=== PATIENT | female | born 1990 | race Caucasian/White ===

== ENCOUNTER 2020-05-23 20:25 | Emergency (ER) | payer MEDICAID, OTHER ==
[~2020-05-23] VITALS: Ht 160 cm; Wt 107.9 kg
[2020-05-23 20:46] VITALS: BP 133/69
[2020-05-23] MEDS ORDERED: ONDA4TAB11 PO (20:54)
--- NOTE | 2020-05-23 20:54 | ED General ---
General Stated Complaint: VOMITING History of Present Illness Date Seen by Provider: May 23, 2020 Time Seen by Provider: 20:45 Initial Comments This patient is a 30-year-old female presents to the emergency department stating that she vomited last night. Involuntarily. Since she woke up this morning also nauseous and vomited. Patient states otherwise he feels pretty good has multiple vague complaints that are chronic in nature but nothing acute. Patient has nonspecific complaints. Timing/Duration: 12-24 Hours Severity: Mild Associated Systoms: Denies Symptoms, Nausea/Vomiting Allergies and Home Medications Allergies Coded Allergies: Penicillins (Verified Allergy, Unknown, 05/23/20) Sulfa (Sulfonamide Antibiotics) (Verified Allergy, Unknown, 05/23/20) albuterol (Verified Allergy, Unknown, 05/23/20) codeine (Verified Allergy, Unknown, 05/23/20) sulfamethoxazole (Verified Allergy, Unknown, 05/23/20) trimethoprim (Verified Allergy, Unknown, 05/23/20) Home Medications Ondansetron 4 Mg Tab.rapdis, 4 MG PO BID PRN Prescribed by: TOMY DRISCOLL on 05/23/202053 Patient Home Medication List Home Medication List Reviewed: Yes Review of Systems Review of Systems Constitutional: No no symptoms reported; see HPI; No chills, No diaphoresis, No dizziness, No fever, No malaise, No weakness, No weight gain, No weight loss, No other EENTM: No see HPI, No no symptoms reported, No ear discharge, No hearing loss, No ear pain, No blurred vision, No double vision, No eye pain, No tearing, No vision loss, No dental problems, No hoarseness, No mouth pain, No mouth swelling, No epistaxis, No nose congestion, No nose pain, No throat pain, No thr oat swelling, No other Respiratory: No no symptoms reported, No see HPI, No cough, No dyspnea on exertion, No hemoptysis, No orthopnea, No phlegm, No short of breath, No stridor, No wheezing, No other Cardiovascular: No no symptoms reported, No see HPI, No chest pain, No edema, No Hx of Intervention, No palpitations, No syncope, No vascular heart diseas, No other Gastrointestinal: No RUQ, No LUQ, No RLQ, No LLQ, No no symptoms reported; see HPI; No abdominal pain, No constipation, No diarrhea, No dysphagia, No hematemesis, No heartburn, No jaundice, No loss of appetite, No melena; nausea, vomiting; No other Genitourinary: No no symptoms reported, No see HPI, No decreased output, No discharge, No dysuria, No frequency, No hematuria, No hesitancy, No incontinence, No nocturia, No pain, No other Musculoskeletal: No no symptoms reported, No see HPI, No back pain, No gout, No joint pain, No joint swelling, No muscle pain, No muscle stiffness, No muscle cramps, No muscle twitching, No muscle weakness, No neck pain, No other Skin: No no symptoms reported, No see HPI, No change in color, No change in hair/nails, No dryness, No hx of skin cancer, No lesions, No lumps, No pruritus, No rash, No other All Other Systems Reviewed Negative Unless Noted: Yes Past Luqmjdb-Glgcpv-Fsnygv Hx Patient Social History Recent Foreign Travel: No Contact w/Someone Who Travel: No Physical Exam Vital Signs Vital Signs - First Documented 05/23/20 20:46 Temp 36.1 Pulse 78 Resp 18 B/P (MAP) 133/69 (90) Pulse Ox 97 O2 Delivery Room Air Capillary Refill : Height, Weight, BMI Height: '" Weight: lbs. oz. kg; BMI Method: General Appearance: No Apparent Distress, WD/WN Respiratory: Chest Non Tender, Lungs Clear, Normal Breath Sounds, No Accessory Muscle Use, No Respiratory Distress Cardiovascular: Regular Rate, Rhythm, No Edema, No Gallop, No JVD, No Murmur, Normal Peripheral Pulses Gastrointestinal: Normal Bowel Sounds, No Organomegaly, No Pulsatile Mass, Non Tender, Soft Progress/Results/Core Measures Suspected Sepsis SIRS Temperature: Pulse: Respiratory Rate: Blood Pressure / Mean: Results/Orders My Orders Orders - TOMY DRISCOLL MD Abdomen Flat & Upright/Decub (05/23/20 20:50) Vital Signs/I&O 05/23/20 20:46 Temp 36.1 Pulse 78 Resp 18 B/P (MAP) 133/69 (90) Pulse Ox 97 O2 Delivery Room Air Capillary Refill : Progress Note : Time: 20:52 Progress Note Negative evaluation on the emergency department. X-ray prescription is constipated. Encourage by mouth fluids. Advance diet as tolerated. Zofran IV for nausea. Follow-up with PCP. Departure Impression Primary Impression: Nausea & vomiting Additional Impression: Constipation Disposition: 01 HOME, SELF-CARE Condition: Stable Departure-Patient Inst. Decision time for Depature: 21:21 Referrals: NO,LOCAL PHYSICIAN (PCP) Primary Care Physician Patient Instructions: Nausea and Vomiting, Adult (DC) Add. Discharge Instructions: Encourage by mouth fluids. Advance diet as tolerated. Zofran IV for nausea. Follow-up with PCP. Mrbt-myg-hwrwklw laxative MiraLAX as needed for constipation Scripts Ondansetron (Ondansetron Odt) 4 Mg Tab.rapdis 4 MG PO BID PRN, #10 TAB 0 Refills Prov: TOMY DRISCOLL MD 05/23/20 TOMY DRISCOLL MD May 23, 2020 20:54
--- NOTE | 2020-05-23 21:24 | Diagnostic Imaging Report ---
INDICATION: Vomiting Supine and upright views of the abdomen show fecal material throughout a nondilated colon consistent with constipation. No obstruction or perforation is evident. No mass or calculus is seen. There is no bony abnormality. IMPRESSION: Constipation. Dictated by: Dictated on workstation # [id number]
== END 2020-05-23 21:23 | disposition home or self-care (01) ==
LOC: ER FS 20:27
DX: K59.00 Constipation, unspecified (principal); Z88.0 Allergy status to penicillin; Z88.2 Allergy status to sulfonamides; Z88.5 Allergy status to narcotic agent; Z88.1 Allergy status to other antibiotic agents; Z88.8 Allergy status to other drugs, medicaments and biological substances
CPT/HCPCS: 74019

== ENCOUNTER 2020-07-30 07:15 | Emergency (ER) | payer MEDICAID ==
[~2020-07-30] VITALS: Ht 160 cm; Wt 100.0 kg
[~2020-07-30 07:15] MED LIST: ONDA4TAB11 PO
[2020-07-30 07:29] VITALS: BP 134/76
[2020-07-30 07:40] LABS: CLARITY,URINE CLOUDY; COLOR,URINE YELLOW; GLUCOSE, URINE (UA) NEGATIVE (NEGATIVE); KETONES,URINE NEGATIVE (NEGATIVE); NITRITE,URINE POSITIVE (NEGATIVE); PROTEIN,URINE 2+ (NEGATIVE)
[2020-07-30 07:41] LABS: BACTERIA,URINE FEW /HPF; BILIRUBIN,URINE 1+ (NEGATIVE); LEUKOCYTE ESTERASE ,URINE 2+ (NEGATIVE); RBC,URINE TNTC /HPF; SQUAMOUS EPITHELIAL CELL,UR 0-2 /HPF; WBC,URINE TNTC /HPF
--- NOTE | 2020-07-30 07:50 | ED GU-Female ---
General Chief Complaint: - Urinary Stated Complaint: VAGINAL BURNING Nursing Triage Note: PT REPORTS BURNING AND PAIN WITH URINATION FOR 2 DAYS. Nursing Sepsis Screen: No Definite Risk Source: patient Exam Limitations: no limitations History of Present Illness Date Seen by Provider: Jul 30, 2020 Time Seen by Provider: 07:30 Initial Comments 30 y/o female presents w c/o pain and burning w urination for a couple days. Denies vaginal DC or abnl bleeding. No fever or back pain. Hx of UTI's , however has not had one for a while. Was on an antibiotic (keflex) in the last 30 days for a "bacteria infection", but she does not know what it was. Allergies and Home Medications Allergies Coded Allergies: Penicillins (Verified Allergy, Unknown, 05/23/20) Sulfa (Sulfonamide Antibiotics) (Verified Allergy, Unknown, 05/23/20) albuterol (Verified Allergy, Unknown, 05/23/20) codeine (Verified Allergy, Unknown, 05/23/20) sulfamethoxazole (Verified Allergy, Unknown, 05/23/20) trimethoprim (Verified Allergy, Unknown, 05/23/20) Home Medications Ciprofloxacin HCl 500 Mg Tablet, 500 MG PO BID Prescribed by: HARRY THRASHER on 07/30/20751 Fluconazole 150 Mg Tablet, 150 MG PO ONCE Prescribed by: HARRY THRASHER on 07/30/20751 Ondansetron 4 Mg Tab.rapdis, 4 MG PO BID PRN Prescribed by: TOMY DRISCOLL on 05/23/202053 Phenazopyridine HCl 200 Mg Tablet, 200 MG PO BID Prescribed by: HARRY THRASHER on 07/30/20751 Patient Home Medication List Home Medication List Reviewed: Yes Review of Systems Review of Systems Constitutional: No chills, No fever, No malaise Respiratory: no symptoms reported Cardiovascular: no symptoms reported Gastrointestinal: No abdominal pain, No constipation, No diarrhea, No loss of appetite, No nausea, No vomiting Genitourinary: burning; denies discharge; dysuria, frequency; denies flank pain, denies hematuria, denies incontinence; pain, urgency Musculoskeletal: No back pain, No joint pain Past Zbtvyjg-Gkosjd-Vlqqql Hx Past Med/Social Hx: Reviewed Nursing Past Med/Soc Hx Patient Social History Alcohol Use: Occasionally Uses Smoking Status: Current Everyday Smoker Type Used: Cigarettes 2nd Hand Smoke Exposure: Yes Recent Infectious Disease Expo: No Past Medical History Surgeries: No Respiratory: Yes Asthma Cardiac: No Neurological: No Genitourinary: No Gastrointestinal: No Musculoskeletal: Yes Chronic Back Pain Endocrine: No HEENT: No Cancer: No Psychosocial: Yes Anxiety, Depression Integumentary: No Physical Exam Vital Signs Vital Signs - First Documented 07/30/20 07:29 Temp 35.9 Pulse 89 Resp 18 B/P (MAP) 134/76 (95) Pulse Ox 99 O2 Delivery Room Air Capillary Refill : Less Than 3 Seconds Height, Weight, BMI Height: '" Weight: lbs. oz. kg; 39.00 BMI Method: General Appearance: WD/WN, no apparent distress Gastrointestinal: normal bowel sounds, non tender, soft, no organomegaly, no pulsatile mass Back: normal inspection, no CVA tenderness Progress/Results/Core Measures Suspected Sepsis Recent Fever Within 48 Hours: No Infection Criteria Present: None New/Unexplained Altered Menta: No Sepsis Screen: No Definite Risk SIRS Temperature: Pulse: 89 Respiratory Rate: 18 Blood Pressure 134 /76 Mean: 95 Results/Orders Lab Results Laboratory Tests Test 07/30/20 07:20 Range/Units Urine Color YELLOW Urine Clarity CLOUDY Urine pH 6.0 5-9 Urine Specific [place] 1.025 H 1.016-1.022 Urine Protein 2+ H NEGATIVE Urine Glucose (UA) NEGATIVE NEGATIVE Urine Ketones NEGATIVE NEGATIVE Urine Nitrite POSITIVE H NEGATIVE Urine Bilirubin 1+ H NEGATIVE Urine Urobilinogen 0.2 < = 1.0 MG/DL Urine Leukocyte Esterase 2+ H NEGATIVE Urine RBC (Auto) 3+ H NEGATIVE Urine RBC TNTC H /HPF Urine WBC TNTC H /HPF Urine Squamous Epithelial Cells 0-2 /HPF Urine Crystals NONE /LPF Urine Bacteria FEW H /HPF Urine Casts NONE /LPF Urine Mucus NEGATIVE /LPF Urine Culture Indicated YES My Orders Orders - CARRILLOSTHARRY CRUZ DO Ua Culture If Indicated (07/30/20 07:28) Urine Culture (07/30/20 07:20) Vital Signs/I&O 07/30/20 07:29 Temp 35.9 Pulse 89 Resp 18 B/P (MAP) 134/76 (95) Pulse Ox 99 O2 Delivery Room Air Capillary Refill : Less Than 3 Seconds Blood Pressure Mean: 95 Departure Impression Primary Impression: Urinary tract infection Qualified Codes: N30.00 - Acute cystitis without hematuria Disposition: HOME, SELF-CARE Condition: Stable Departure-Patient Inst. Decision time for Depature: 07:46 Referrals: JOSE RAFAEL VERMA APRN (PCP) Primary Care Physician [facility] (Family) Primary Care Physician Patient Instructions: Urinary Tract Infection, Adult (DC) Add. Discharge Instructions: Follow up with your PCP in 1 week All discharge instructions reviewed with patient and/or family. Voiced unders tanding. Scripts Fluconazole (Diflucan) 150 Mg Tablet 150 MG PO ONCE, #1 TAB Prov: HARRY THRASHER DO 07/30/20 Ciprofloxacin HCl (Ciprofloxacin HCl) 500 Mg Tablet 500 MG PO BID, #14 TAB Prov: CARRILLOSTHARRY CRUZ DO 07/30/20 Phenazopyridine HCl (Pyridium) 200 Mg Tablet 200 MG PO BID for dysuria, #6 Prov: HARRY THRASHER DO 07/30/20 HARRY THRASHER DO Jul 30, 2020 07:50
[2020-07-30] MEDS ORDERED: CIPR500T4 PO (07:52)
[2020-07-30] MEDS ORDERED: FLUC150T PO (07:52)
[2020-07-30] MEDS ORDERED: PHEN-640 PO (07:52)
== END 2020-07-30 07:53 | disposition home or self-care (01) ==
LOC: EDUNIT# 07:15 → ER FS 07:17
DX: N39.0 Urinary tract infection, site not specified (principal); F17.210 Nicotine dependence, cigarettes, uncomplicated; Z88.0 Allergy status to penicillin; Z88.2 Allergy status to sulfonamides; Z88.5 Allergy status to narcotic agent; Z88.1 Allergy status to other antibiotic agents; Z88.8 Allergy status to other drugs, medicaments and biological substances
CPT/HCPCS: 81000; 87088; 99282

== ENCOUNTER 2020-12-10 02:08 | Emergency (ER) | payer MEDICAID ==
[~2020-12-10] VITALS: Ht 160 cm; Wt 105.2 kg
[~2020-12-10 02:08] MED LIST changes: +CIPR500T5 PO; +FLUC150T PO; +PHEN-640 PO
[2020-12-10 02:22] VITALS: BP 135/86
[2020-12-10] MEDS ORDERED: ONDA4TAB11 PO (02:23)
--- NOTE | 2020-12-10 02:23 | ED GI ---
General Stated Complaint: NAUSEA/VOMITING History of Present Illness Date Seen by Provider: December 10, 2020 Time Seen by Provider: 02:18 Initial Comments 31-year-old female presents via EMS with complaint of nausea and vomiting starting at 1 AM. Given Zofran sublingual in route and feeling better on arrival, denies abdominal pain, fever or chills. States she ate 2 hotdogs and not sure cheese fries last night before going to bed and thinks that may have upset her stomach. Allergies and Home Medications Allergies Coded Allergies: Penicillins (Verified Allergy, Unknown, 05/23/20) Sulfa (Sulfonamide Antibiotics) (Verified Allergy, Unknown, 05/23/20) albuterol (Verified Allergy, Unknown, 05/23/20) codeine (Verified Allergy, Unknown, 05/23/20) sulfamethoxazole (Verified Allergy, Unknown, 05/23/20) trimethoprim (Verified Allergy, Unknown, 05/23/20) Home Medications Ciprofloxacin HCl 500 Mg Tablet, 500 MG PO BID Prescribed by: HARRY THRASHER on 07/30/20751 Fluconazole 150 Mg Tablet, 150 MG PO ONCE Prescribed by: HARRY THRASHER on 07/30/20751 Ondansetron 4 Mg Tab.rapdis, 4 MG PO BID PRN Prescribed by: TOMY DRISCOLL on 05/23/202053 Ondansetron 4 Mg Tab.rapdis, 4 MG PO TID Prescribed by: HARRY THRASHER on 12/10/20222 Phenazopyridine HCl 200 Mg Tablet, 200 MG PO BID Prescribed by: HARRY THRASHER on 07/30/20 075 Patient Home Medication List Home Medication List Reviewed: Yes Review of Systems Review of Systems Constitutional: No chills, No fever, No malaise, No weakness EENTM: No Symptoms Reported Respiratory: No Symptoms Reported; Denies Cough, Denies Shortness of Air Cardiovascular: Denies Chest Pain, Denies Edema Gastrointestinal: See HPI; Denies Abdominal Pain, Denies Constipated, Denies Diarrhea; Nausea, Vomiting Genitourinary: No Symptoms Reported Musculoskeletal: no symptoms reported Skin: No change in color, No rash Past Mqatrgs-Tzfkdr-Rwfcyk Hx Past Med/Social Hx: Reviewed Nursing Past Med/Soc Hx Physical Exam Vital Signs Vital Signs - First Documented 12/10/20 02:22 Temp 35.6 Pulse 82 Resp 16 B/P (MAP) 135/86 (102) O2 Delivery Room Air Capillary Refill : Height/Weight/BMI Height: '" Weight: lbs. oz. kg; BMI Method: General Appearance: WD/WN, no apparent distress Respiratory: chest non-tender, lungs clear, normal breath sounds, no respiratory distress, no accessory muscle use Cardiovascular: regular rate, rhythm, no edema, no JVD Gastrointestinal: normal bowel sounds, non tender, soft, no organomegaly, no pulsatile mass; No distended, No guarding, No rebound Neurologic/Psychiatric: alert, normal mood/affect Skin: normal color, warm/dry Progress/Results/Core Measures Results/Orders Vital Signs/I&O 12/10/20 02:22 Temp 35.6 Pulse 82 Resp 16 B/P (MAP) 135/86 (102) O2 Delivery Room Air Progress Progress Note : Progress Note Nausea vomiting resolved on arrival, feeling better. Denies any abdominal pain. Departure Impression Primary Impression: Nausea and vomiting Qualified Codes: R11.2 - Nausea with vomiting, unspecified Disposition: 01 HOME, SELF-CARE Condition: Improved Departure-Patient Inst. Decision time for Depature: 02:21 Patient Instructions: Nausea and Vomiting, Adult Add. Discharge Instructions: Follow-up with your PCP in 2 to 3 days if not improving, ER sooner if worse. Scripts Ondansetron (Ondansetron Odt) 4 Mg Tab.rapdis 4 MG PO TID for Nausea, #10 TAB Prov: HARRY THRASHER DO 12/10/20 HARRY THRASHER DO December 10, 2020 02:23
== END 2020-12-10 02:38 | disposition home or self-care (01) ==
LOC: EDUNIT# 02:08 → ER FS 02:18
DX: R11.2 Nausea with vomiting, unspecified (principal)
CPT/HCPCS: 99283

== ENCOUNTER 2021-08-14 20:25 | Observation (INO) | payer MEDICAID ==
[~2021-08-14] VITALS: Ht 165.1 cm; Wt 99.7 kg
[2021-08-14] MEDS ORDERED: LORazepam INJ 2 MG/ML (ATIVAN) VIAL IVP STA (20:43)
[2021-08-14] MEDS ORDERED: ZIPRASIDONE 20 MG INJ (GEODON) VIAL IM STA (20:43)
[2021-08-14] MEDS ORDERED: WATER (STERILE) FOR INJ 10 ML BTL INJ SCH (20:45)
[2021-08-14] MEDS ORDERED: NS IV 1000 ML 1,000 ML IV SCH (20:45)
[2021-08-14 20:57] LABS: BASOPHILS # (AUTO) 0.1 10^3/uL (0.0-0.1); BASOPHILS % (AUTO) 1 % (0-10); EOSINOPHILS # (AUTO) 0.1 10^3/uL (0.0-0.3); EOSINOPHILS % (AUTO) 1 % (0-10); HEMATOCRIT 40 % (35-52); HEMOGLOBIN 12.8 g/dL (11.5-16.0); LYMPHOCYTES # (AUTO) 4.3 10^3/uL (1.0-4.0); LYMPHOCYTES % (AUTO) 27 % (12-44); MEAN CORPUSCULAR HEMOGLOBIN 26 pg (25-34); MEAN CORPUSCULAR HGB CONC 32 g/dL (32-36); MEAN CORPUSCULAR VOLUME 80 fL (80-99); MEAN PLATELET VOLUME 10.3 fL (9.0-12.2); MONOCYTES % (AUTO) 6 % (0-12); NEUTROPHILS # (AUTO) 10.1 10^3/uL (1.8-7.8); NEUTROPHILS % (AUTO) 65 % (42-75); PLATELET COUNT 537 10^3/uL (130-400); WHITE BLOOD COUNT 15.6 10^3/uL (4.3-11.0)
--- NOTE | 2021-08-14 21:05 | ED Psychosocial ---
General Chief Complaint: Altered Mental Status Stated Complaint: ALTERED LOC Nursing Triage Note: Patient was brought in via [facility] for altered mental status. EMS states that the patient was found wandering around her home in a catatonic like state. Patient is oriented to date and name. Patient is unable to explain what is wrong. Source: patient, EMS, old records Exam Limitations: clinical condition (acute psychosis with altered mental status) History of Present Illness Date Seen by Provider: Aug 14, 2021 Time Seen by Provider: 20:28 Initial Comments 31-year-old female brought in by [facility] for altered mental status. They reported that the patient was found wandering her home and saying that she felt something was wrong and she did not know what was wrong with her. She is oriented to person and time but not to place. She has dilated pupils and is agitated. She has to be constantly redirected due to her psychosis. She appears to be acting under the influence of something or hearing voices telling her to do things. She reportedly has just started Ambien in the last few days. She also takes psychiatric medications for borderline personality disorder. From review of her external medication history she has had multiple medication changes and increases over the last 2-3 months. She could be having interaction of Ambien and her other psychiatric meds. She could also be having an acute psychotic break or have illicit drugs in her system causing her reaction tonight. Associated Symptoms: anxiety, impaired concentration Allergies and Home Medications Allergies Coded Allergies: Penicillins (Verified Allergy, Unknown, 05/23/20) Sulfa (Sulfonamide Antibiotics) (Verified Allergy, Unknown, 05/23/20) albuterol (Verified Allergy, Unknown, 05/23/20) codeine (Verified Allergy, Unknown, 05/23/20) sulfamethoxazole (Verified Allergy, Unknown, 05/23/20) trimethoprim (Verified Allergy, Unknown, 05/23/20) Patient Home Medication List Home Medication List Reviewed: Yes Ciprofloxacin HCl (Ciprofloxacin HCl) 500 Mg Tablet, 500 MG PO BID Prescribed by: HARRY THRASHER on 07/30/20 075 Fluconazole (Diflucan) 150 Mg Tablet, 150 MG PO ONCE Prescribed by: HARRY VIZCAINOSTANTHONY on 07/30/20 075 Ondansetron (Ondansetron Odt) 4 Mg Tab.rapdis, 4 MG PO BID PRN Prescribed by: TOMY DRISCOLL on 05/23/202053 Ondansetron (Ondansetron Odt) 4 Mg Tab.rapdis, 4 MG PO TID Prescribed by: HARRY THRASHER on 12/10/20 022 Phenazopyridine HCl (Pyridium) 200 Mg Tablet, 200 MG PO BID Prescribed by: HARRY VIZCAINOSTANTHONY on 07/30/20 0752 Review of Systems ROS-Unable to Obtain: due to mental status change pt not answering questions fo r ROS Constitutional: no symptoms reported Psychiatric/Neurological: Anxiety Past Mumpuem-Hvnqji-Ayaiyg Hx Patient Social History Smoking Status: Smoker Current Status UNK Pt feels they are or have been: Unable to obtain Seasonal Allergies Seasonal Allergies: Yes Past Medical History Surgeries: No Respiratory: Yes Asthma Cardiac: No Neurological: No Genitourinary: No Gastrointestinal: No (reports IBS) Irritable Bowel Musculoskeletal: Yes Chronic Back Pain Endocrine: No HEENT: No Cancer: No Psychosocial: Yes Anxiety, Violent Behavior, Depression Integumentary: No Blood Disorders: No Physical Exam Vital Signs - First Documented 08/14/21 20:25 Temp 37.0 Pulse 114 Resp 20 B/P (MAP) 162/97 (118) Pulse Ox 94 O2 Delivery Room Air Capillary Refill : Less Than 3 Seconds Height, Weight, BMI Height: '" Weight: lbs. oz. kg; 36.00 BMI Method: General Appearance: mild distress, obese, other (staring gaze and dilated pupils, slow to respond to questions, agitated at times and trying to get up off bed) HEENT: other (dilated pupils and slightly dry mucous membranes) Neck: non-tender, full range of motion, supple, normal inspection Respiratory: chest non-tender, lungs clear, normal breath sounds, no respiratory distress, no accessory muscle use Cardiovascular: normal peripheral pulses, tachycardia Gastrointestinal: normal bowel sounds, non tender, soft, no pulsatile mass Extremities: normal range of motion, non-tender, normal capillary refill Neurologic/Psychiatric: alert; No oriented x 3 (oriented to person and time only) Appearance/Memory: disheveled, impaired insight, impaired recent memory, impaired remote memory Behavior/Eye Contact: decreased rate of speech, compulsive, other (staring gaze and slow to answer or respond to questions) Thoughts/Hallucinations: paranoid, other (agitated at times and keeps trying to get up off bed) Skin: normal color, warm/dry Progress/Results/Core Measures Results/Orders Lab Results Laboratory Tests Test 08/14/21 20:38 08/14/21 21:41 08/14/21 21:48 Range/Units White Blood Count 15.6 H 4.3-11.0 10^3/uL Red Blood Count 4.99 3.80-5.11 10^6/uL Hemoglobin 12.8 11.5-16.0 g/dL Hematocrit 40 35-52 % Mean Corpuscular Volume 80 80-99 fL Mean Corpuscular Hemoglobin 26 25-34 pg Mean Corpuscular Hemoglobin Concent 32 32-36 g/dL Red Cell Distribution Width 15.1 H 10.0-14.5 % Platelet Count 537 H 130-400 10^3/uL Mean Platelet Volume 10.3 9.0-12.2 fL Immature Granulocyte % (Auto) 0 % Neutrophils (%) (Auto) 65 42-75 % Lymphocytes (%) (Auto) 27 12-44 % Monocytes (%) (Auto) 6 0-12 % Eosinophils (%) (Auto) 1 0-10 % Basophils (%) (Auto) 1 0-10 % Neutrophils # (Auto) 10.1 H 1.8-7.8 10^3/uL Lymphocytes # (Auto) 4.3 H 1.0-4.0 10^3/uL Monocytes # (Auto) 1.0 0.0-1.0 10^3/uL Eosinophils # (Auto) 0.1 0.0-0.3 10^3/uL Basophils # (Auto) 0.1 0.0-0.1 10^3/uL Immature Granulocyte # (Auto) 0.0 0.0-0.1 10^3/uL Neutrophils % (Manual) 61 % Lymphocytes % (Manual) 30 % Monocytes % (Manual) 6 % Eosinophils % (Manual) 1 % Band Neutrophils 2 % Platelet Estimate INCREASED Blood Morphology Comment NORMAL Sodium Level 140 135-145 MMOL/L Potassium Level 2.9 L 3.6-5.0 MMOL/L Chloride Level 99 98-107 MMOL/L Carbon Dioxide Level 23 21-32 MMOL/L Anion Gap 18 H 5-14 MMOL/L Blood Urea Nitrogen 7 7-18 MG/DL Creatinine 0.74 0.60-1.30 MG/DL Estimat Glomerular Filtration Rate 109 BUN/Creatinine Ratio 9 Glucose Level 148 H 70-105 MG/DL Calcium Level 9.3 8.5-10.1 MG/DL Corrected Calcium 9.3 8.5-10.1 MG/DL Total Bilirubin 0.5 0.1-1.0 MG/DL Aspartate Amino Transf (AST/SGOT) 18 5-34 U/L Alanine Aminotransferase (ALT/SGPT) 24 0-55 U/L Alkaline Phosphatase 100 40-136 U/L Total Protein 8.1 6.4-8.2 GM/DL Albumin 4.0 3.2-4.5 GM/DL Serum Test, Qualitative NEGATIVE NEGATIVE Salicylates Level < 0.3 L 5.0-20.0 MG/DL Acetaminophen Level < 10 L 10-30 UG/ML Serum Alcohol < 10 <10 MG/DL Urine Color YELLOW Urine Clarity CLOUDY Urine pH 6.0 5-9 Urine Specific [place] >=1.030 1.016-1.022 Urine Protein TRACE H NEGATIVE Urine Glucose (UA) NEGATIVE NEGATIVE Urine Ketones NEGATIVE NEGATIVE Urine Nitrite NEGATIVE NEGATIVE Urine Bilirubin 1+ H NEGATIVE Urine Urobilinogen 0.2 < = 1.0 MG/DL Urine Leukocyte Esterase NEGATIVE NEGATIVE Urine RBC (Auto) TRACE-I H NEGATIVE Urine RBC NONE /HPF Urine WBC 3-5 /HPF Urine Squamous Epithelial Cells 10-25 H /HPF Urine Crystals NONE /LPF Urine Bacteria MODERATE H /HPF Urine Casts NONE /LPF Urine Mucus NEGATIVE /LPF Urine Other CLUE CELLS NOTED /HPF Urine Culture Indicated NO Urine Opiates Screen NEGATIVE NEGATIVE Urine Oxycodone Screen NEGATIVE NEGATIVE Urine Methadone Screen NEGATIVE NEGATIVE Urine Propoxyphene Screen NEGATIVE NEGATIVE Urine Barbiturates Screen NEGATIVE NEGATIVE Ur Tricyclic Antidepressants Screen NEGATIVE NEGATIVE Urine Phencyclidine Screen NEGATIVE NEGATIVE Urine Amphetamines Screen NEGATIVE NEGATIVE Urine Methamphetamines Screen NEGATIVE NEGATIVE Urine Benzodiazepines Screen NEGATIVE NEGATIVE Urine Cocaine Screen NEGATIVE NEGATIVE Urine Cannabinoids Screen POSITIVE H NEGATIVE My Orders Orders - OMID LYNN MD Ua Culture If Indicated (08/14/21 20:43) Cbc With Automated Diff (08/14/21 20:43) Comprehensive Metabolic Panel (08/14/21 20:43) Alcohol (08/14/21 20:43) Drug Screen Stat (Urine) (08/14/21 20:43) Acetaminophen (08/14/21 20:43) Salicylate (08/14/21 20:43) Ekg Tracing (08/14/21 20:43) Ed Iv/Invasive Line Start (08/14/21 20:43) Monitor-Rhythm Ecg Trace Only (08/14/21 20:43) Bh Status Checks/Observation Q15M (08/14/21 20:43) Ns Iv 1000 Ml (Sodium Chloride 0.9%) (08/14/21 20:45) Covid 19 Inhouse Test (08/14/21 20:43) Isolation Central Supply Req (08/14/21 20:43) Hcg,Qualitative Serum (08/14/21 20:43) Lorazepam Injection (Ativan Injection) (08/14/21 20:43) Ziprasidone Injection (Geodon Injection) (08/14/21 20:43) Water (Sterile) For Injection (Sterile W (08/14/21 20:45) Manual Differential (08/14/21 20:38) Pang Cath (08/14/21 21:49) Ns Iv 1000 Ml (Sodium Chloride 0.9%) (08/14/21 23:52) Potassium Cl 10meq/50ml Ivpb (Kcl 10 Meq (08/14/21 23:52) Vital Signs/I&O 08/14/21 08/15/21 20:25 00:54 Temp 37.0 Pulse 114 71 Resp 20 16 B/P (MAP) 162/97 (118) 129/86 Pulse Ox 94 99 O2 Delivery Room Air Room Air 08/15/21 00:00 Intake Total 1000 ml Balance 1000 ml Blood Pressure Mean: 118 Admisison Planning May Need Admission (Planning): 20:45 Progress Progress Note #1: Progress Note Patient appears to be responding to outside stimuli. She has a staring gaze with dilated pupils. She repeatedly says that she does not know what is wrong with her and tries to get up off the bed. At times she becomes agitated. Will obtain labs to medically screen her for a psych standpoint to see if there was a medical condition to account for her acute psychosis. Law enforcement came to help with redirecting her and keeping her safe in the bed so that she did not get up and fall or hurt herself. She had unsteady gait and near fall when she transferred from EMS cot to bed in ED. Will give IVF 1 L NS for hydration, Lorazepam 1 mg IV for agitation and anxiety, Geodon 20 mg IM for anxiety and agitation with apparent psychosis. Progress Note #2: Progress Note No acute ischemic change on the electrocardiogram. Her labs showed an elevated white blood cell count of 15.6. Her chemistry panel did not show any acute significant abnormality to account for her symptoms. She did have mild hypokalemia with a potassium of 2.9. Her alcohol salicylate and acetaminophen levels were negative. Her urine drug screen was positive for marijuana only. Her urinalysis was slightly concentrated but did not show signs of infection. After medication and fluids were given to help with her agitation and acute psychosis she seemed to calm down and was able to rest in the bed. Will give a 2nd Liter of NS for IV fluid hydration along with IV potassium for her hypokalemia. Will check with auto service station attendant physician for [facility] about admit for monitoring for her acute psychosis and once she is medically stable and cleared could see about possible mental health screening Initial ECG Impression Date: Aug 14, 2021 Initial ECG Impression Time: 21:21 Initial ECG Rate: 84 Initial ECG Rhythm: Normal Sinus Initial ECG Comparisson: No Previous ECG Available Comment Normal sinus rhythm with a heart rate of 84 bpm. SD interval 140 ms. T wave flattening in the inferior leads. QT interval 400 ms with a QTc interval 473 ms. There is no acute ST elevation. There is no prior tracing immediately available for comparison. Departure Communication (Admissions) Time/Spoke to Admitting Phy: 23:[address] Stewart for [facility]. She accepted admission of the patient for acute psychosis and mental status change. We will continue with hydration and neuro checks. Anticipate mental health evaluation once patient is medically clear and stable and able to converse and be evaluated by mental health staff. Impression Primary Impression: Acute psychosis Additional Impressions: Dehydration Hypokalemia Disposition: 30 STILL A PATIENT Condition: Stable Admissions Decision to Admit Reason: Admit from ER (General) Decision to Admit/Date: Aug 14, 2021 Time/Decision to Admit Time: 23:56 Departure-Patient Inst. Referrals: JOSE RAFAEL VERMA APRN (PCP/Family) Primary Care Physician OMID LYNN MD Aug 14, 2021 21:05
[2021-08-14 21:33] LABS: BAND NEUTROPHILS 2 %; EOSINOPHILS % (MANUAL) 1 %; LYMPHOCYTES % (MANUAL) 30 %; MONOCYTES % (MANUAL) 6 %; NEUTROPHILS % (MANUAL) 61 %
[2021-08-14 21:34] LABS: PLATELET ESTIMATE INCREASED; RBC MORPH NORMAL
[2021-08-14 21:35] LABS: CARBON DIOXIDE 23 MMOL/L (21-32); CHLORIDE 99 MMOL/L (98-107); POTASSIUM 2.9 MMOL/L (3.6-5.0); SODIUM 140 MMOL/L (135-145)
[2021-08-14 21:36] LABS: ALANINE AMINOTRANSFERASE 24 U/L (0-55); ALKALINE PHOSPHATASE 100 U/L (40-136); BILIRUBIN,TOTAL 0.5 MG/DL (0.1-1.0); BUN/CREATININE RATIO 9; CALCIUM 9.3 MG/DL (8.5-10.1); CREATININE SERUM 0.74 MG/DL (0.60-1.30); GFR ESTIMATED 109; GLUCOSE 148 MG/DL (70-105); TOTAL PROTEIN 8.1 GM/DL (6.4-8.2)
[2021-08-14 21:37] LABS: ACETAMINOPHEN < 10 UG/ML (10-30); SALICYLATE < 0.3 MG/DL (5.0-20.0)
[2021-08-14 21:51] LABS: CLARITY,URINE CLOUDY; COLOR,URINE YELLOW; GLUCOSE, URINE (UA) NEGATIVE (NEGATIVE); KETONES,URINE NEGATIVE (NEGATIVE); LEUKOCYTE ESTERASE ,URINE NEGATIVE (NEGATIVE); NITRITE,URINE NEGATIVE (NEGATIVE); PROTEIN,URINE TRACE (NEGATIVE)
[2021-08-14 22:22] LABS: BACTERIA,URINE MODERATE /HPF
[2021-08-14 22:23] LABS: BILIRUBIN,URINE 1+ (NEGATIVE)
[2021-08-14 22:26] LABS: URINE OTHER CLUE CELLS NOTED /HPF
[2021-08-14 22:27] LABS: AMPHETAMINE SCREEN, URINE NEGATIVE (NEGATIVE); BARBITURATE SCREEN URINE NEGATIVE (NEGATIVE); BENZODIAZEPINES SCREEN URINE NEGATIVE (NEGATIVE); CANNABINOID SCREEN, URINE POSITIVE (NEGATIVE); COCAINE SCREEN URINE NEGATIVE (NEGATIVE); METHADONE STAT NEGATIVE (NEGATIVE); METHAMPHETAMINE SCREEN URINE S NEGATIVE (NEGATIVE); OPIATE SCREEN URINE NEGATIVE (NEGATIVE); OXYCODONE STAT NEGATIVE (NEGATIVE); PROPOXYPHENE STAT NEGATIVE (NEGATIVE); TRICYCLIC ANTIDEPRESSANTS SCRE NEGATIVE (NEGATIVE)
[2021-08-14] MEDS ORDERED: POTASSIUM CL 10MEQ/50ML IVPB 50 ML IV STA (23:52)
[2021-08-14] MEDS ORDERED: NS IV 1000 ML 1,000 ML IV STA (23:52)
[2021-08-15 02:00] VITALS: BP 131/85
[2021-08-15] MEDS ORDERED: LORazepam INJ 2 MG/ML (ATIVAN) VIAL IV PRN (03:00)
[2021-08-15] MEDS: NS W/KCL 20 MEQ/L 1,000 ML IV SCH ×2 (03:29→12:44)
[2021-08-15 04:22] VITALS: BP 157/96
[2021-08-15 05:57] LABS: BASOPHILS # (AUTO) 0.1 10^3/uL (0.0-0.1); BASOPHILS % (AUTO) 1 % (0-10); EOSINOPHILS # (AUTO) 0.2 10^3/uL (0.0-0.3); EOSINOPHILS % (AUTO) 2 % (0-10); HEMATOCRIT 37 % (35-52); HEMOGLOBIN 11.4 g/dL (11.5-16.0); LYMPHOCYTES # (AUTO) 4.1 10^3/uL (1.0-4.0); LYMPHOCYTES % (AUTO) 30 % (12-44); MEAN CORPUSCULAR HEMOGLOBIN 26 pg (25-34); MEAN CORPUSCULAR HGB CONC 31 g/dL (32-36); MEAN CORPUSCULAR VOLUME 82 fL (80-99); MEAN PLATELET VOLUME 10.1 fL (9.0-12.2); MONOCYTES % (AUTO) 7 % (0-12); NEUTROPHILS # (AUTO) 8.2 10^3/uL (1.8-7.8); NEUTROPHILS % (AUTO) 60 % (42-75); PLATELET COUNT 412 10^3/uL (130-400); WHITE BLOOD COUNT 13.6 10^3/uL (4.3-11.0)
[2021-08-15 06:03] LABS: POTASSIUM 2.9 MMOL/L (3.6-5.0)
[2021-08-15 06:04] LABS: CALCIUM 8.4 MG/DL (8.5-10.1)
[2021-08-15 06:09] LABS: CREATININE SERUM 0.7 MG/DL (0.60-1.30)
[2021-08-15 08:00] VITALS: BP 150/98
[2021-08-15] MEDS: POTASSIUM CL 10MEQ/50ML IVPB 50 ML IV SCH ×6 (08:24→13:28)
[2021-08-15] MEDS: LORazepam INJ 2 MG/ML (ATIVAN) VIAL IV PRN ×3 (09:23→23:17)
[2021-08-15 12:00] VITALS: BP 146/98
[2021-08-15] MEDS ORDERED: ZOLP10TA PO ×2 (14:03)
[2021-08-15] MEDS ORDERED: ARIP10TA55 PO ×2 (14:03)
[2021-08-15] MEDS ORDERED: BUSP10TA95 PO ×2 (14:03)
[2021-08-15] MEDS ORDERED: DIVA500T15 PO ×2 (14:03)
[2021-08-15] MEDS ORDERED: DESV100T16 PO ×2 (14:03)
--- NOTE | 2021-08-15 15:06 | History & Physical ---
HPI History of Present Illness: 31 yo female reports she called EMS yesterday because she hasn't been able to sleep since Saturday and has been feeling overwhelmed and "doesn't think she can do it at home alone". She denies history of psychiatric hospitalization, and reports she has not had medicine changes and has been taking medications as prescribed. She denies history of substance use, smokes a ppd. She denies suicidal ideation. I also spoke with patients' mother (with patient's permission) Delma, for about 20 minutes on the phone, who reported Yumiko has had a lot of mental health difficulties, but she doesn't think she has had anything like this prior, but she also isn't in very close touch with her. Date seen by provider: Aug 15, 2021 Time Seen by Provider: 09:45 Attending Physician Ayana Stewart MD PCP Lidia Morales Aprn Consult Date of Admission Aug 15, 2021 at 02:05 Home Medications Home Medications Reviewed patient Home Medication Reconciliation performed by pharmacy medication reconciliations unit technician and/or nursing. Patients Allergies have been reviewed. Allergies Coded Allergies: Penicillins (Verified Allergy, Unknown, 05/23/20) Sulfa (Sulfonamide Antibiotics) (Verified Allergy, Unknown, 05/23/20) albuterol (Verified Allergy, Unknown, 05/23/20) codeine (Verified Allergy, Unknown, 05/23/20) sulfamethoxazole (Verified Allergy, Unknown, 05/23/20) trimethoprim (Verified Allergy, Unknown, 05/23/20) JVU-Chyfej-Rmbnsk Hx Patient Social History Smoking Status: Current Someday Smoker 2nd Hand Smoke Exposure: Yes Alcohol Use?: No Tobacco type used: Cigarettes Have you traveled recently?: No Immunizations Up To Date Influenza Vaccine Up-to-Date: Yes; Up-to-Date (05/09/21) First/Initial COVID19 Vaccinat: 11/18/20 Second COVID19 Vaccination [place]: 12/16/20 COVID19 Booster (Date): 06/19/21 COVID19 Vaccine Heel Reducer: Moderntrinidad Past Medical History PMHx: Depression Anxiety Asthma Migraines SurgHx: Tubal ligation Cholecystectomy Family Medical History Significant Family History: No Pertinent Family Hx Review of Systems ([facility]) Constitutional: No dizziness, No fever EENTM: No vision loss, No throat pain Respiratory: No cough, No short of breath Cardiovascular: No chest pain, No syncope Gastrointestinal: No abdominal pain, No diarrhea, No nausea, No vomiting Genitourinary: No dysuria, No hematuria Musculoskeletal: No joint pain Reviewed Test Results Reviewed Test Results Lab Laboratory Tests Test 08/14/21 20:38 08/14/21 21:41 08/14/21 21:48 08/15/21 05:45 Range/Units White Blood Count 15.6 H 13.6 H 4.3-11.0 10^3/uL Red Blood Count 4.99 4.46 3.80-5.11 10^6/uL Hemoglobin 12.8 11.4 L 11.5-16.0 g/dL Hematocrit 40 37 35-52 % Mean Corpuscular Volume 80 82 80-99 fL Mean Corpuscular Hemoglobin 26 26 25-34 pg Mean Corpuscular Hemoglobin Concent 32 31 L 32-36 g/dL Red Cell Distribution Width 15.1 H 14.9 H 10.0-14.5 % Platelet Count 537 H 412 H 130-400 10^3/uL Mean Platelet Volume 10.3 10.1 9.0-12.2 fL Immature Granulocyte % (Auto) 0 0 % Neutrophils (%) (Auto) 65 60 42-75 % Lymphocytes (%) (Auto) 27 30 12-44 % Monocytes (%) (Auto) 6 7 0-12 % Eosinophils (%) (Auto) 1 2 0-10 % Basophils (%) (Auto) 1 1 0-10 % Neutrophils # (Auto) 10.1 H 8.2 H 1.8-7.8 10^3/uL Lymphocytes # (Auto) 4.3 H 4.1 H 1.0-4.0 10^3/uL Monocytes # (Auto) 1.0 1.0 0.0-1.0 10^3/uL Eosinophils # (Auto) 0.1 0.2 0.0-0.3 10^3/uL Basophils # (Auto) 0.1 0.1 0.0-0.1 10^3/uL Immature Granulocyte # (Auto) 0.0 0.0 0.0-0.1 10^3/uL Neutrophils % (Manual) 61 % Lymphocytes % (Manual) 30 % Monocytes % (Manual) 6 % Eosinophils % (Manual) 1 % Band Neutrophils 2 % Platelet Estimate INCREASED Blood Morphology Comment NORMAL Sodium Level 140 139 135-145 MMOL/L Potassium Level 2.9 L 2.9 L 3.6-5.0 MMOL/L Chloride Level 99 107 98-107 MMOL/L Carbon Dioxide Level 23 21 21-32 MMOL/L Anion Gap 18 H 11 5-14 MMOL/L Blood Urea Nitrogen 7 7 7-18 MG/DL Creatinine 0.74 0.70 0.60-1.30 MG/DL Estimat Glomerular Filtration Rate 109 117 BUN/Creatinine Ratio 9 10 Glucose Level 148 H 109 H 70-105 MG/DL Calcium Level 9.3 8.4 L 8.5-10.1 MG/DL Corrected Calcium 9.3 8.5-10.1 MG/DL Total Bilirubin 0.5 0.1-1.0 MG/DL Aspartate Amino Transf (AST/SGOT) 18 5-34 U/L Alanine Aminotransferase (ALT/SGPT) 24 0-55 U/L Alkaline Phosphatase 100 40-136 U/L Total Protein 8.1 6.4-8.2 GM/DL Albumin 4.0 3.2-4.5 GM/DL Serum Test, Qualitative NEGATIVE NEGATIVE Salicylates Level < 0.3 L 5.0-20.0 MG/DL Acetaminophen Level < 10 L 10-30 UG/ML Serum Alcohol < 10 <10 MG/DL Urine Color YELLOW Urine Clarity CLOUDY Urine pH 6.0 5-9 Urine Specific [place] >=1.030 1.016-1.022 Urine Protein TRACE H NEGATIVE Urine Glucose (UA) NEGATIVE NEGATIVE Urine Ketones NEGATIVE NEGATIVE Urine Nitrite NEGATIVE NEGATIVE Urine Bilirubin 1+ H NEGATIVE Urine Urobilinogen 0.2 < = 1.0 MG/DL Urine Leukocyte Esterase NEGATIVE NEGATIVE Urine RBC (Auto) TRACE-I H NEGATIVE Urine RBC NONE /HPF Urine WBC 3-5 /HPF Urine Squamous Epithelial Cells 10-25 H /HPF Urine Crystals NONE /LPF Urine Bacteria MODERATE H /HPF Urine Casts NONE /LPF Urine Mucus NEGATIVE /LPF Urine Other CLUE CELLS NOTED /HPF Urine Culture Indicated NO Urine Opiates Screen NEGATIVE NEGATIVE Urine Oxycodone Screen NEGATIVE NEGATIVE Urine Methadone Screen NEGATIVE NEGATIVE Urine Propoxyphene Screen NEGATIVE NEGATIVE Urine Barbiturates Screen NEGATIVE NEGATIVE Ur Tricyclic Antidepressants Screen NEGATIVE NEGATIVE Urine Phencyclidine Screen NEGATIVE NEGATIVE Urine Amphetamines Screen NEGATIVE NEGATIVE Urine Methamphetamines Screen NEGATIVE NEGATIVE Urine Benzodiazepines Screen NEGATIVE NEGATIVE Urine Cocaine Screen NEGATIVE NEGATIVE Urine Cannabinoids Screen POSITIVE H NEGATIVE SARS-CoV-2 RNA (RT-PCR) Not Detected Not Detecte Physical Exam-([facility]) Physical Exam Vital Signs VS - Last 72 Hours, by Label 08/14/21 08/15/21 08/15/21 08/15/21 20:25 00:54 02:00 02:00 Temp 37.0 35.7 Pulse 114 71 81 Resp 20 16 20 B/P (MAP) 162/97 (118) 129/86 131/85 (100) Pulse Ox 94 99 100 O2 Delivery Room Air Room Air Room Air Room Air 08/15/21 08/15/21 08/15/21 08/15/21 03:25 04:22 07:00 08:00 Temp 36.0 36.7 Pulse 99 85 104 106 Resp 18 18 B/P (MAP) 157/96 (116) 150/98 (115) Pulse Ox 100 96 O2 Delivery Room Air Room Air 08/15/21 08/15/21 12:00 12:32 Temp 37.0 Pulse 102 134 Resp 20 B/P (MAP) 146/98 (114) Pulse Ox 98 Capillary Refill : Less Than 3 Seconds General Appearance: no apparent distress Respiratory: lungs clear, normal breath sounds Cardiovascular: regular rate, rhythm Gastrointestinal: normal bowel sounds, non tender, soft Extremities: no pedal edema Neurologic/Psychiatric: alert, oriented x 3; No abnormal cerebellar tests, No abnormal rail setter II-XII, No motor weakness Skin: normal color, warm/dry Assessment/Plan Assessment/Plan Admission Status: Observation (1) Altered behavior Status: Acute Assessment & Plan: Uncertain etiology, urine tox pos only for THC. Recently had dose of abilify increased, possibly recent start of ambien, per mother may have been prescribed from an ER visit. No localizing neurologic symptoms. She is alert and oriented at time of my exam. (2) Depression Status: Chronic Assessment & Plan: Holding home meds for now due to concern about medication interaction or overuse contributing to altered state. Qualifiers: (3) Anxiety Status: Chronic Assessment & Plan: Holding home meds for now due to concern about medication interaction or overuse contributing to altered state. Ativan for severe agitation. (4) Hypokalemia Status: Acute Assessment & Plan: Uncertain etiology, replace and follow. (5) Asthma Status: Chronic (6) Migraines Status: Chronic (7) Leukocytosis Status: Acute Assessment & Plan: Uncertain etiology, check CXR and urine culture. Possibly stress reaction. (8) Thrombocytosis Status: Acute (9) Elevated blood pressure reading Status: Acute Assessment & Plan: History of gestational hypertension, but not chronic. Monitor, check head CT. AYANA STEWART MD Aug 15, 2021 15:06
[2021-08-15 16:00] VITALS: BP 151/98
--- NOTE | 2021-08-15 16:20 | Diagnostic Imaging Report ---
PROCEDURE: CT head without contrast. TECHNIQUE: Multiple contiguous axial images were obtained through the brain without the use of intravenous contrast. Auto Exposure Controls were utilized during the CT exam to meet ALARA standards for radiation dose reduction. INDICATION: Altered mental status. COMPARISON: No prior studies are available for comparison. FINDINGS: Ventricles and sulci are within normal limits. No sulcal effacement or midline shift is identified. No acute intra-axial or extra-axial hemorrhage is identified. Cisterns are patent. Visualized paranasal sinuses are clear. IMPRESSION: No acute intracranial process is detected. Dictated by: Dictated on workstation # [id number]
--- NOTE | 2021-08-15 16:22 | Diagnostic Imaging Report ---
INDICATION: Leukocytosis. TIME OF EXAM: 03:52 p.m. COMPARISON: No prior studies are available for comparison. FINDINGS: The heart size is normal. The pulmonary vascularity is unremarkable. The lungs are clear. No infiltrate, effusion or pneumothorax is detected. IMPRESSION: No acute cardiopulmonary process is detected. Dictated by: Dictated on workstation # [id number]
[2021-08-15 19:08] VITALS: BP 146/99
[2021-08-16 00:27] VITALS: BP 149/100
[2021-08-16] MEDS: NS W/KCL 20 MEQ/L 1,000 ML IV SCH (00:35)
[2021-08-16 03:39] VITALS: BP 147/99
[2021-08-16 06:50] LABS: HEMATOCRIT 39 % (35-52); HEMOGLOBIN 12.4 g/dL (11.5-16.0); MEAN CORPUSCULAR HEMOGLOBIN 26 pg (25-34); MEAN CORPUSCULAR HGB CONC 32 g/dL (32-36); MEAN CORPUSCULAR VOLUME 81 fL (80-99); PLATELET COUNT 429 10^3/uL (130-400); WHITE BLOOD COUNT 13.5 10^3/uL (4.3-11.0)
[2021-08-16 07:04] LABS: POTASSIUM 3.8 MMOL/L (3.6-5.0)
[2021-08-16 07:05] LABS: CALCIUM 8.8 MG/DL (8.5-10.1)
[2021-08-16 07:09] LABS: CREATININE SERUM 0.66 MG/DL (0.60-1.30)
[2021-08-16 07:35] VITALS: BP 138/92
--- NOTE | 2021-08-16 09:48 | Progress Note ---
Subjective Subjective/Events-last exam Afebrile, no acute events, intermittently somewhat agitated. This morning at time of my exam, she is standing up wanting to go for a walk and impulsively walking without bring IV pole. She states "I don't know what is wrong with me", and when asked what she means, she said "I am not myself", but can't clarify f urther. She is alert and oriented x3 (and seems somewhat irritated to be asked these questions), but seems to stare past without making good eye contact and says "I am having a mental breakdown" but again when asked further she doesn't answer/clarify. Objective Exam Last Set of Vital Signs Vital Signs Date Time Temp Pulse Resp B/P (MAP) Pulse Ox O2 Delivery O2 Flow Rate FiO2 08/16/21 07:35 37.2 86 22 138/92 (107) 96 Room Air Capillary Refill : Less Than 3 Seconds I&O Intake and Output 08/16/21 00:00 Intake Total 2420 ml Output Total 2575 ml Balance -155 ml Intake Oral 1120 ml IV Total 1300 ml Output Urine Total 2575 ml Daily Weight Change Unsure General: Alert, Oriented X3 Lungs: Clear to Auscultation, Normal Air Movement Heart: Regular Rate, No Murmurs Abdomen: Normal Bowel Sounds, Soft Neuro: Other (poor eye contact, ambulating independently but appears to sway at times) Psych/Mental Status: Other (oriented x 3 but doesn't answer other questions well) Results/Procedures Lab Laboratory Tests 08/16/21 06:45: White Blood Count 13.5H, Red Blood Count 4.83, Hemoglobin 12.4, Hematocrit 39, Mean Corpuscular Volume 81, Mean Corpuscular Hemoglobin 26, Mean Corpuscular Hemoglobin Concent 32, Red Cell Distribution Width 14.6H, Platelet Count 429H, Mean Platelet Volume 10.0, Sodium Level 135, Potassium Level 3.8, Chloride Level 105, Carbon Dioxide Level 19L, Anion Gap 11, Blood Urea Nitrogen 6L, Creatinine 0.66, Estimat Glomerular Filtration Rate 119, BUN/Creatinine Ratio 9, Glucose Level 108H, Calcium Level 8.[address] head 08/15/21: IMPRESSION: No acute intracranial process is detected. CXR 08/15/21: IMPRESSION: No acute cardiopulmonary process is detected. Assessment/Plan Assessment/Plan (1) Altered behavior Status: Acute Assessment & Plan: Uncertain etiology, urine tox pos only for THC. Recently had dose of abilify increased, possibly recent start of ambien, per mother may have been prescribed from an ER visit. No localizing neurologic symptoms. She is alert and oriented at time of my exam. 2/2- remains oriented but with impulsive behaviors and stating she is having a breakdown but does not answer further questions about symptoms. CT head okay. Continuing to eval for possible Psychiatric inpatient placement. (2) Depression Status: Chronic Assessment & Plan: Holding home meds for now due to concern about medication interaction or overuse contributing to altered state. Qualifiers: (3) Anxiety Status: Chronic Assessment & Plan: Holding home meds for now due to concern about medication interaction or overuse contributing to altered state. Ativan for severe agitation. (4) Hypokalemia Status: Resolved Assessment & Plan: Uncertain etiology, replace and follow. (5) Asthma Status: Chronic (6) Migraines Status: Chronic (7) Leukocytosis Status: Acute Assessment & Plan: Uncertain etiology, check CXR and urine culture. Possibly stress reaction. 2/2- CXR okay, urine culture pending. (8) Thrombocytosis Status: Acute (9) Elevated blood pressure reading Status: Acute Assessment & Plan: History of gestational hypertension, but not chronic. Monitor, check head CT. 2/2 appears to be trending down, CT head unremarkable. (10) DVT prophylaxis Status: Acute Assessment & Plan: Enoxaparin (11) Discharge planning issues Status: Acute Assessment & Plan: 08/15- Investigating possibility of inpatient Psych, spoke with mother about status. 08/16- Spoke with mother and updated on status. AYANA HILARIO MD Aug 16, 2021 09:48
[2021-08-16 12:09] VITALS: BP 146/98
[2021-08-16] MEDS: LORazepam INJ 2 MG/ML (ATIVAN) VIAL IV PRN ×2 (12:36→20:16)
[2021-08-16 15:03] VITALS: BP 138/94
[2021-08-16 19:33] VITALS: BP 114/79
[2021-08-17] VITALS (7 sets, daily range): BP systolic 108–151; BP diastolic 68–93
[2021-08-17 09:08] LABS: HEMATOCRIT 43 % (35-52); HEMOGLOBIN 13.6 g/dL (11.5-16.0); MEAN CORPUSCULAR HEMOGLOBIN 25 pg (25-34); MEAN CORPUSCULAR HGB CONC 31 g/dL (32-36); MEAN CORPUSCULAR VOLUME 81 fL (80-99); MEAN PLATELET VOLUME 10.1 fL (9.0-12.2); PLATELET COUNT 475 10^3/uL (130-400); WHITE BLOOD COUNT 13.6 10^3/uL (4.3-11.0)
[2021-08-17 09:24] LABS: POTASSIUM 3.9 MMOL/L (3.6-5.0)
[2021-08-17 09:25] LABS: CALCIUM 9.4 MG/DL (8.5-10.1)
[2021-08-17 09:29] LABS: CREATININE SERUM 0.78 MG/DL (0.60-1.30)
[2021-08-17] MEDS: LORazepam INJ 2 MG/ML (ATIVAN) VIAL IV PRN ×2 (09:35→20:35)
--- NOTE | 2021-08-17 16:01 | Progress Note ---
Subjective Subjective/Events-last exam Alert, with very flat affect, states she is not sure what is wrong with her, but when asked further questions, she is more conversational and states she has all this depression and can't sleep and doesn't know what is next or where that is going. She states she went to the ER in [place] about a week ago and was prescribed the Ambien. She doesn't recall if she is taking Depakote, but doesn't think so. Objective Exam Last Set of Vital Signs Vital Signs Date Time Temp Pulse Resp B/P (MAP) Pulse Ox O2 Delivery O2 Flow Rate FiO2 08/17/21 15:13 36.7 113 14 119/88 (98) 95 Room Air Capillary Refill : Less Than 3 Seconds I&O Intake and Output 08/17/21 00:00 Intake Total 880 ml Output Total 2920 ml Balance -2040 ml Intake Oral 880 ml Output Urine Total 2920 ml General: Alert, No Acute Distress Lungs: Clear to Auscultation, Normal Air Movement Heart: Regular Rate, No Murmurs Neuro: Other Psych/Mental Status: Other (flat affect, oriented x 3, shuffling gait, impulsive movements that appear concerning for risk of fall) Results/Procedures Lab Laboratory Tests 08/17/21 09:04: White Blood Count 13.6H, Red Blood Count 5.35H, Hemoglobin 13.6, Hematocrit 43, Mean Corpuscular Volume 81, Mean Corpuscular Hemoglobin 25, Mean Corpuscular Hemoglobin Concent 31L, Red Cell Distribution Width 14.8H, Platelet Count 475H, Mean Platelet Volume 10.1, Sodium Level 134L, Potassium Level 3.9, Chloride Level 102, Carbon Dioxide Level 19L, Anion Gap 13, Blood Urea Nitrogen 10, Creatinine 0.78, Estimat Glomerular Filtration Rate 103, BUN/Creatinine Ratio 13, Glucose Level 136H, Calcium Level 9.[address] head 08/15/21: IMPRESSION: No acute intracranial process is detected. CXR 08/15/21: IMPRESSION: No acute cardiopulmonary process is detected. Assessment/Plan Assessment/Plan (1) Altered behavior Status: Acute Assessment & Plan: Uncertain etiology, urine tox pos only for THC. Recently had dose of abilify increased, possibly recent start of ambien, per mother may have been prescribed from an ER visit. No localizing neurologic symptoms. She is alert and oriented at time of my exam. 2/2- remains oriented but with impulsive behaviors and stating she is having a breakdown but does not answer further questions about symptoms. CT head okay. Continuing to eval for possible Psychiatric inpatient placement. 08/17- talked with outpatient psych [employer]ING ROLLING MACHINE OPERATOR, he noted that she was on depakote for quite some time and he was actually hesitant to d/c in case of any bipolar co ncern, but she was adamant that it was for irritablity/anger and she didn't think it helped and wanted to stop, so she was changed from that to abilify at the end of June, given this, he is concerned that the difficulty sleeping, etc could be a possible manifestation of bipolar, and therefore, we will try resuming depakote for now. Will also resume antidepressant and buspirone, hold abilify and ambien. Ambien was prescribed by outside ER about a week ago, not a chronic medication for her. (2) Depression Status: Chronic Assessment & Plan: Holding home meds for now due to concern about medication interaction or overuse contributing to altered state. 2/3 see above Qualifiers: (3) Anxiety Status: Chronic Assessment & Plan: Holding home meds for now due to concern about medication interaction or overuse contributing to altered state. Ativan for severe agitation. 2/3 resume home buspirone. (4) Hypokalemia Status: Resolved Assessment & Plan: Uncertain etiology, replace and follow. (5) Asthma Status: Chronic (6) Migraines Status: Chronic (7) Leukocytosis Status: Acute Assessment & Plan: Uncertain etiology, check CXR and urine culture. Possibly stress reaction. 2/2- CXR okay, urine culture pending. (8) Thrombocytosis Status: Acute (9) Elevated blood pressure reading Status: Resolved Assessment & Plan: History of gestational hypertension, but not chronic. Monitor, check head CT. 2/2 appears to be trending down, CT head unremarkable. (10) DVT prophylaxis Status: Acute Assessment & Plan: Enoxaparin (11) Discharge planning issues Status: Acute Assessment & Plan: 08/15- Investigating possibility of inpatient Psych, spoke with mother about status. 08/16- Spoke with mother and updated on status. 3- working on inpatient transfer still for voluntary stay AYANA HILARIO MD Aug 17, 2021 16:01
[2021-08-17] MEDS: DIVALPROEX EXT RELEASE 500 MG (DEPAKOTE ER) TAB PO SCH (18:17)
[2021-08-17] MEDS: busPIRone 10 MG (BUSPAR) TAB PO SCH (20:34)
[2021-08-18 03:01] VITALS: BP 115/69
[2021-08-18 05:40] LABS: HEMATOCRIT 42 % (35-52); HEMOGLOBIN 13.1 g/dL (11.5-16.0); MEAN CORPUSCULAR HEMOGLOBIN 26 pg (25-34); MEAN CORPUSCULAR HGB CONC 32 g/dL (32-36); MEAN CORPUSCULAR VOLUME 81 fL (80-99); MEAN PLATELET VOLUME 10.7 fL (9.0-12.2); PLATELET COUNT 436 10^3/uL (130-400); WHITE BLOOD COUNT 14.1 10^3/uL (4.3-11.0)
[2021-08-18 06:05] LABS: POTASSIUM 3.9 MMOL/L (3.6-5.0)
[2021-08-18 06:07] LABS: CALCIUM 9.3 MG/DL (8.5-10.1)
[2021-08-18 06:11] LABS: CREATININE SERUM 0.72 MG/DL (0.60-1.30)
[2021-08-18] MEDS: VENlafaxine XR 75 MG (EFFEXOR XR) CAP PO SCH (06:40)
[2021-08-18 07:53] VITALS: BP 118/80
[2021-08-18] MEDS ORDERED: DIVALPROEX EXT RELEASE 500 MG (DEPAKOTE ER) TAB PO SCH (09:00)
[2021-08-18] MEDS ORDERED: NON-FORMULARY MEDICATION 1 EA EA (Desvenlafaxine Succinate (Desvenlafaxine Succinate ER) 1 PO SCH (09:00)
[2021-08-18] MEDS: busPIRone 10 MG (BUSPAR) TAB PO SCH ×2 (09:30→20:58)
[2021-08-18] MEDS: DIVALPROEX EXT RELEASE 500 MG (DEPAKOTE ER) TAB PO SCH (09:31)
[2021-08-18 15:11] VITALS: BP 102/72
--- NOTE | 2021-08-18 16:07 | Progress Note ---
Subjective Subjective/Events-last exam Afebrile, much more conversational this morning, making good eye contact. Still unsteady on her feet and impulsive, nearly fell backwards when student interviewed her. She states she doesn't know why she isn't doing well and can't concentrate well. She asks that I call her and mother. She is still open to inpatient Psych stay if needed. Objective Exam Last Set of Vital Signs Vital Signs Date Time Temp Pulse Resp B/P (MAP) Pulse Ox O2 Delivery O2 Flow Rate FiO2 08/18/21 15:11 36.4 101 16 102/72 (82) 98 Room Air Capillary Refill : Less Than 3 Seconds I&O Intake and Output 08/18/21 00:00 Intake Total 1130 ml Output Total 800 ml Balance 330 ml Intake Oral 1130 ml Output Urine Total 800 ml # Bowel Movements 1 General: Alert, Oriented X3, Cooperative Lungs: Clear to Auscultation, Normal Air Movement Heart: Regular Rate, No Murmurs Extremities: No Edema Psych/Mental Status: Other (flat affect, but with more animation than yesterday and better eye contact) Results/Procedures Lab Laboratory Tests 08/18/21 05:20: White Blood Count 14.1H, Red Blood Count 5.11, Hemoglobin 13.1, Hematocrit 42, Mean Corpuscular Volume 81, Mean Corpuscular Hemoglobin 26, Mean Corpuscular He moglobin Concent 32, Red Cell Distribution Width 14.8H, Platelet Count 436H, Mean Platelet Volume 10.7, Sodium Level 136, Potassium Level 3.9, Chloride Level 103, Carbon Dioxide Level 21, Anion Gap 12, Blood Urea Nitrogen 12, Creatinine 0.72, Estimat Glomerular Filtration Rate 113, BUN/Creatinine Ratio 17, Glucose Level 100, Calcium Level 9.[address] head 08/15/21: IMPRESSION: No acute intracranial process is detected. CXR 08/15/21: IMPRESSION: No acute cardiopulmonary process is detected. Assessment/Plan Assessment/Plan (1) Altered behavior Status: Acute Assessment & Plan: Uncertain etiology, urine tox pos only for THC. Recently had dose of abilify increased, possibly recent start of ambien, per mother may have been prescribed from an ER visit. No localizing neurologic symptoms. She is alert and oriented at time of my exam. 08/16- remains oriented but with impulsive behaviors and stating she is having a breakdown but does not answer further questions about symptoms. CT head okay. Continuing to eval for possible Psychiatric inpatient placement. 08/17- talked with outpatient psych CONDUCTOR FREIGHT, he noted that she was on depakote for quite some time and he was actually hesitant to d/c in case of any bipolar concern, but she was adamant that it was for irritablity/anger and she didn't think it helped and wanted to stop, so she was changed from that to abilify at the end of June, given this, he is concerned that the difficulty sleeping, etc could be a possible manifestation of bipolar, and therefore, we will try resuming depakote for now. Will also resume antidepressant and buspirone, hold abilify and ambien. Ambien was prescribed by outside ER about a week ago, not a chronic medication for her. 08/18- improved, but still impulsive and unsteady, awaiting Psych referral review for inpatient Psych. (2) Depression Status: Chronic Assessment & Plan: Holding home meds for now due to concern about medication interaction or overuse contributing to altered state. 2/3 see above Qualifiers: (3) Anxiety Status: Chronic Assessment & Plan: Holding home meds for now due to concern about medication interaction or overuse contributing to altered state. Ativan for severe agitation. 2/3 resume home buspirone. (4) Hypokalemia Status: Resolved Assessment & Plan: Uncertain etiology, replace and follow. (5) Asthma Status: Chronic (6) Migraines Status: Chronic (7) Leukocytosis Status: Acute Assessment & Plan: Uncertain etiology, check CXR and urine culture. Possibly stress reaction. 08/16- CXR okay, urine culture pending. 08/18 will check peripheral smear (8) Thrombocytosis Status: Acute (9) Elevated blood pressure reading Status: Resolved Assessment & Plan: History of gestational hypertension, but not chronic. Monitor, check head CT. 2 appears to be trending down, CT head unremarkable. (10) DVT prophylaxis Status: Acute Assessment & Plan: Enoxaparin (11) Discharge planning issues Status: Acute Assessment & Plan: 08/15- Investigating possibility of inpatient Psych, spoke with mother about status. 08/16- Spoke with mother and updated on status. 08/17- working on inpatient transfer still for voluntary stay 2/4- waiting on Psych referral, status somewhat improved, if continued improvement may ultimately be able to go home if no psych bed available. Called [facility] , no answer. Called mother Delma and updated. AYANA HILARIO MD Aug 18, 2021 16:07
[2021-08-18 16:26] LABS: ABSOLUTE RETIC # 89 10e9/uL (24-90); RETICULOCYTE % 1.76 % (0.50-2.40)
[2021-08-18 17:20] LABS: BASOPHILS % (MANUAL) 3 %; EOSINOPHILS % (MANUAL) 2 %; LYMPHOCYTES % (MANUAL) 30 %; MONOCYTES % (MANUAL) 5 %; NEUTROPHILS % (MANUAL) 60 %; RBC MORPH NORMAL
[2021-08-18 19:19] VITALS: BP 118/75
[2021-08-18] MEDS: LORazepam INJ 2 MG/ML (ATIVAN) VIAL IV PRN (20:58)
[2021-08-19] VITALS (7 sets, daily range): BP systolic 101–130; BP diastolic 70–83
[2021-08-19] MEDS: LORazepam INJ 2 MG/ML (ATIVAN) VIAL IV PRN ×3 (01:21→21:46)
[2021-08-19] MEDS: VENlafaxine XR 75 MG (EFFEXOR XR) CAP PO SCH (06:32)
[2021-08-19] MEDS: busPIRone 10 MG (BUSPAR) TAB PO SCH ×2 (07:56→20:09)
[2021-08-19] MEDS: DIVALPROEX EXT RELEASE 500 MG (DEPAKOTE ER) TAB PO SCH (07:56)
--- NOTE | 2021-08-19 11:16 | Progress Note - Hospitalist ---
Subjective HPI/CC On Admission Date Seen by Provider: Aug 19, 2021 Time Seen by Provider: 11:00 Subjective/Events-last exam Patient has flat affect but alert and oriented x3. She reports feeling tired denies neck stiffness or headache voices no other complaints denies depression currently. She was able to walk to the bathroom unassisted. Does report chronic nausea but was able to keep a muffin down this morning. P.o. intake had been minimal. Objective Exam Vital Signs Vital Signs Date Time Temp Pulse Resp B/P (MAP) Pulse Ox O2 Delivery O2 Flow Rate FiO2 08/19/21 08:23 36.0 98 20 126/81 (96) 97 Room Air Capillary Refill : Less Than 3 Seconds General Appearance: No Apparent Distress, Obese Neck: Full Range of Motion, Non Tender Respiratory: Chest Non Tender, Lungs Clear, Normal Breath Sounds, No Accessory Muscle Use, No Respiratory Distress Cardiovascular: Regular Rate, Rhythm, No Edema, No Gallop, No JVD, No Murmur, Normal Peripheral Pulses Gastrointestinal: Normal Bowel Sounds, No Organomegaly, No Pulsatile Mass, Non Tender, Soft Results/Procedures Lab Patient resulted labs reviewed. Assessment/Plan Assessment and Plan Assess & Plan/Chief Complaint Laboratory Tests 08/18/21 05:20: White Blood Count 14.1H, Red Blood Count 5.11, Hemoglobin 13.1, Hematocrit 42, Mean Corpuscular Volume 81, Mean Corpuscular Hemoglobin 26, Mean Corpuscular Hemoglobin Concent 32, Red Cell Distribution Width 14.8H, Platelet Count 436H, Mean Platelet Volume 10.7, Sodium Level 136, Potassium Level 3.9, Chloride Level 103, Carbon Dioxide Level 21, Anion Gap 12, Blood Urea Nitrogen 12, Creatinine 0.72, Estimat Glomerular Filtration Rate 113, BUN/Creatinine Ratio 17, Glucose Level 100, Calcium Level 9.[address] head 08/15/21: IMPRESSION: No acute intracranial process is detected. CXR 08/15/21: IMPRESSION: No acute cardiopulmonary process is detected. Assessment/Plan-([facility]) Assessment/Plan Assessment/Plan (1) Altered behavior Status: Acute Assessment & Plan: Uncertain etiology, urine tox pos only for THC. Recently had dose of abilify increased, possibly recent start of ambien, per mother may have been prescribed from an ER visit. No localizing neurologic symptoms. She is alert and oriented at time of my exam. 2/- remains oriented but with impulsive behaviors and stating she is having a breakdown but does not answer further questions about symptoms. CT head okay. Continuing to eval for possible Psychiatric inpatient placement. 08/17- talked with outpatient psych TOUR AGENT, he noted that she was on depakote for quite some time and he was actually hesitant to d/c in case of any bipolar concern, but she was adamant that it was for irritablity/anger and she didn't think it helped and wanted to stop, so she was changed from that to abilify at the end of June, given this, he is concerned that the difficulty sleeping, etc could be a possible manifestation of bipolar, and therefore, we will try resuming depakote for now. Will also resume antidepressant and buspirone, hold abilify and ambien. Ambien was prescribed by outside ER about a week ago, not a chronic medication for her. 08/18- improved, but still impulsive and unsteady, awaiting Psych referral review for inpatient Psych. (2) Depression Status: Chronic Assessment & Plan: Holding home meds for now due to concern about medication interaction or overuse contributing to altered state. 2/3 see above Qualifiers: (3) Anxiety Status: Chronic Assessment & Plan: Holding home meds for now due to concern about medication interaction or overuse contributing to altered state. Ativan for severe agitation. 2/3 resume home buspirone. (4) Hypokalemia Status: Resolved Assessment & Plan: Uncertain etiology, replace and follow. (5) Asthma Status: Chronic (6) Migraines Status: Chronic (7) Leukocytosis Status: Acute Assessment & Plan: Uncertain etiology, check CXR and urine culture. Possibly s tress reaction. 08/16- CXR okay, urine culture pending. 08/18 will check peripheral smear (8) Thrombocytosis Status: Acute (9) Elevated blood pressure reading Status: Resolved Assessment & Plan: History of gestational hypertension, but not chronic. Monitor, check head CT. 22 appears to be trending down, CT head unremarkable. (10) DVT prophylaxis Status: Acute Assessment & Plan: Enoxaparin (11) Discharge planning issues Status: Acute Assessment & Plan: 08/15- Investigating possibility of inpatient Psych, spoke with mother about status. 08/16- Spoke with mother and updated on status. 08/17- working on inpatient transfer still for voluntary stay 2- waiting on Psych referral, status somewhat improved, if continued improvement may ultimately be able to go home if no psych bed available. Called [facility] , no answer. Called mother Delma and updated. Mental status improving no evidence for underlying encephalitis or meningitis white count remains mildly elevated but there is been no evidence to suggest underlying infection. We will make sure her intake continues to improve there are no psych beds available but based on improvement this may not be necessary. We will watch for 1 more day if continued improvement without suicidal ideation or severe depressive symptoms consider discharge in the morning. JORDON SIEGEL MD Aug 19, 2021 11:16
[2021-08-20 01:38] VITALS: BP 121/85
[2021-08-20 04:00] VITALS: BP 128/85
[2021-08-20] MEDS: VENlafaxine XR 75 MG (EFFEXOR XR) CAP PO SCH (05:59)
[2021-08-20 06:01] VITALS: BP 128/85
[2021-08-20] MEDS: DIVALPROEX EXT RELEASE 500 MG (DEPAKOTE ER) TAB PO SCH (08:05)
[2021-08-20] MEDS: busPIRone 10 MG (BUSPAR) TAB PO SCH (08:06)
--- NOTE | 2021-08-20 12:05 | Discharge Summary ---
Diagnosis/Chief Complaint Date of Admission Aug 15, 2021 at 02:05 Date of Discharge Discharge Date: Aug 20, 2021 Primary Care Lidia Morales Aprn Discharge Summary Discharge Physical Exam Allergies: Coded Allergies: Penicillins (Verified Allergy, Unknown, 05/23/20) Sulfa (Sulfonamide Antibiotics) (Verified Allergy, Unknown, 05/23/20) albuterol (Verified Allergy, Unknown, 05/23/20) codeine (Verified Allergy, Unknown, 05/23/20) sulfamethoxazole (Verified Allergy, Unknown, 05/23/20) trimethoprim (Verified Allergy, Unknown, 05/23/20) Vitals & I&Os Vital Signs Date Time Temp Pulse Resp B/P (MAP) Pulse Ox O2 Delivery O2 Flow Rate FiO2 08/20/21 07:31 Room Air 08/20/21 07:00 96 08/20/21 04:00 36.6 20 128/85 (99) 97 General Appearance: No Apparent Distress, Obese Respiratory: Chest Non Tender, Lungs Clear, Normal Breath Sounds, No Accessory Muscle Use, No Respiratory Distress Cardiovascular: Regular Rate, Rhythm, No Edema, No Gallop, No JVD, No Murmur, Normal Peripheral Pulses Gastrointestinal: Normal Bowel Sounds, No Organomegaly, No Pulsatile Mass, Non Tender, Soft Neurologic/Psychiatric: Alert, Oriented x3 Hospital Course Was the Problem List Reviewed?: Yes 31-year-old female brought in by [facility] for altered mental status. They reported that the patient was found wandering her home and saying that she felt something was wrong and she did not know what was wrong with her. She is oriented to person and time but not to place. She has dilated pupils and is agitated. She has to be constantly redirected due to her psychosis. She appears to be acting under the influence of something or hearing voices telling her to do things. She reportedly has just started Ambien in the last few days. She also takes psychiatric medications for borderline personality disorder. From review of her external medication history she has had multiple medication changes and increases over the last 2-3 months. She could be having interaction of Ambien and her other psychiatric meds. She could also be having an acute psychotic break or have illicit drugs in her system causing her reaction Ambien which the patient may have been taking as well as antipsychotic medications were held. Venlafaxine was continued. She denied hearing voices after several days was again alert and oriented x3 tolerating solids voicing no complaints. She states that she feels she can handle the responsibilities of being a mother to a 12-year-old child which she will have to be resuming on discharge. She reports that she does have a psychiatric visit coming up in September. She voiced no other complaints denied suicidal ideation and is not really sure what she may or may not of taken. Discussed the importance of avoiding Ambien and for now we will continue venlafaxine and BuSpar holding antipsychotic medication. She will continue valproic acid current low-dose 500 mg at bedtime as I recall. She is advised to follow-up with her primary care provider next week. Labs (last 24 hrs) Patient resulted labs reviewed. Discussion & Recommendations Discharge Planning: <30 minutes discharge planning Discharge Home Medications: Active Scripts Active Reported Divalproex Sodium ER (Divalproex Sodium) 500 Mg Tab.er.24h 500 Mg PO DAILY Buspirone HCl 10 Mg Tablet 10 Mg PO BID Desvenlafaxine Succinate ER (Desvenlafaxine Succinate) 100 Mg Tab.er.24h 100 Mg PO DAILY Aripiprazole 10 Mg Tablet 10 Mg PO DAILY Ambien (Zolpidem Tartrate) 10 Mg Tablet 10 Mg PO HS PRN Instructions to patient/family Please see electronic discharge instructions given to patient. JORDON SIEGEL MD Aug 20, 2021 12:05
[2021-08-20 12:57] VITALS: BP 126/85
[2021-08-20 14:58] VITALS: BP 126/85
[2021-08-21 16:17] LABS: NEUTROPHILS % (AUTO) 63 % (42-75)
[2021-08-21 16:18] LABS: BASOPHILS % (AUTO) 1 % (0-10); EOSINOPHILS % (AUTO) 3 % (0-10); LYMPHOCYTES % (AUTO) 26 % (12-44); MONOCYTES % (AUTO) 6 % (0-12)
[2021-08-21 16:19] LABS: BASOPHILS # (AUTO) 0.1 10^3/uL (0.0-0.1); EOSINOPHILS # (AUTO) 0.4 10^3/uL (0.0-0.3); LYMPHOCYTES # (AUTO) 3.6 X 10^3 (1.0-4.0); MONOCYTES # (AUTO) 0.9 X 10^3 (0.0-1.0); NEUTROPHILS # (AUTO) 8.7 X 10^3 (1.8-7.8)
== END 2021-08-20 14:20 | disposition home or self-care (01) ==
LOC: EDUNIT# 20:28 → ER FS 20:29 → 4TH 08-15 01:45 → UNDOADMOB 08-15 01:45 → 4TH 08-15 02:05
PROVIDERS: ADMIT Family Medicine; ATTEND Internal Medicine
DX: R41.82 Altered mental status, unspecified (principal); F32.A Depression, unspecified; F41.9 Anxiety disorder, unspecified; J45.909 Unspecified asthma, uncomplicated; E87.6 Hypokalemia; G43.909 Migraine, unspecified, not intractable, without status migrainosus; D72.829 Elevated white blood cell count, unspecified; D75.839 Thrombocytosis, unspecified; R03.0 Elevated blood-pressure reading, without diagnosis of hypertension; G89.29 Other chronic pain; M54.9 Dorsalgia, unspecified; F23 Brief psychotic disorder; E86.0 Dehydration; F17.210 Nicotine dependence, cigarettes, uncomplicated; Z79.899 Other long term (current) drug therapy; Z79.2 Long term (current) use of antibiotics
CPT/HCPCS: 36415; 51702; 70450; 71046; 80048; 80053; 80306; 80320; 80329; 81000; 84703; 85007; 85025; 85027; 85045; 85055; 87636; 93005; 93041; 96361; 96372; 96374

== ENCOUNTER 2021-08-21 12:45 | Emergency (ER) | payer MEDICAID ==
[~2021-08-21 12:45] MED LIST changes: +ARIP10TA55 PO; +BUSP10TA95 PO; +DESV100T16 PO; +DIVA500T15 PO; +ZOLP10TA PO
[2021-08-21] MEDS ORDERED: OLANZapine 5 MG ODT (ZyPREXA ZYDIS) PO ONE (13:00)
--- NOTE | 2021-08-21 13:23 | ED Psychosocial ---
General Chief Complaint: Psych/Social Disorder Stated Complaint: PSYCH EVAL Source: patient, family, EMS Exam Limitations: no limitations History of Present Illness Date Seen by Provider: Aug 21, 2021 Time Seen by Provider: 12:50 Initial Comments 31-year-old female with past medical history of depression and unknown psychosis coming in via EMS due to attempts to self-harm. The patient says she was suicidal and has felt this way for days. Per fianc, she tried to jump out of a moving car just prior to arrival. That is when he called the police who called an ambulance to bring her here. She says she is suicidal currently but has no plan. She says she has not taken anything or done anything else to harm hersel f. She does repeatedly says she is scared and wants to go home. She is really unwilling to answer most questions beyond this. Most of the history was obtained from the fianc as well as EMS. Allergies and Home Medications Allergies Coded Allergies: Penicillins (Verified Allergy, Unknown, 05/23/20) Sulfa (Sulfonamide Antibiotics) (Verified Allergy, Unknown, 05/23/20) albuterol (Verified Allergy, Unknown, 05/23/20) codeine (Verified Allergy, Unknown, 05/23/20) sulfamethoxazole (Verified Allergy, Unknown, 05/23/20) trimethoprim (Verified Allergy, Unknown, 05/23/20) Patient Home Medication List Home Medication List Reviewed: Yes Buspirone HCl (Buspirone HCl) 10 Mg Tablet, 10 MG PO BID, (Reported) Entered as Reported by: AYANA HILARIO on 08/15/211402 Desvenlafaxine Succinate (Desvenlafaxine Succinate ER) 100 Mg Tab.er.24h, 100 MG PO DAILY, (Reported) Entered as Reported by: AYANA HILARIO on 08/15/21 140 Divalproex Sodium (Divalproex Sodium ER) 500 Mg Tab.er.24h, 500 MG PO DAILY, (Reported) Entered as Reported by: AYANA HILARIO on 08/15/21 140 Discontinued Medications Aripiprazole (Aripiprazole) 10 Mg Tablet, 10 MG PO DAILY, (Reported) Entered as Reported by: AYANA HILARIO on 08/15/211402 Ciprofloxacin HCl (Ciprofloxacin HCl) 500 Mg Tablet, 500 MG PO BID Prescribed by: HARRY THRASHER on 07/30/20 075 Fluconazole (Diflucan) 150 Mg Tablet, 150 MG PO ONCE Prescribed by: HARRY THRASHER on 07/30/20 075 Ondansetron (Ondansetron Odt) 4 Mg Tab.rapdis, 4 MG PO BID PRN Prescribed by: TOMY DRISCOLL on 05/23/202053 Ondansetron (Ondansetron Odt) 4 Mg Tab.rapdis, 4 MG PO TID Prescribed by: HARRY THRASHER on 12/10/20 022 Phenazopyridine HCl (Pyridium) 200 Mg Tablet, 200 MG PO BID Prescribed by: HARRY THRASHER on 07/30/20751 Zolpidem Tartrate (Ambien) 10 Mg Tablet, 10 MG PO HS PRN for INSOMNIA, (Reported) Entered as Reported by: AYANA HILARIO on 08/15/21 1403 Review of Systems Constitutional: No chills, No fever EENTM: No blurred vision Respiratory: No cough Cardiovascular: No chest pain Gastrointestinal: No abdominal pain Genitourinary: No dysuria Musculoskeletal: no symptoms reported; No joint pain Skin: No no symptoms reported Psychiatric/Neurological: Depressed; Denies Headache, Denies Numbness, Denies Weakness All Other Systems Reviewed Negative Unless Noted: Yes Past Xwghsyc-Lobdqi-Nmfbzv Hx Patient Social History Substance use?: Yes Substance type: Marijuana Immunizations Up To Date First/Initial COVID19 Vaccinat: 11/18/20 Second COVID19 Vaccination Jameson: 12/16/20 Seasonal Allergies Seasonal Allergies: Yes Past Medical History Surgeries: No Respiratory: Yes Asthma Cardiac: No Neurological: No Genitourinary: No Gastrointestinal: No (reports IBS) Irritable Bowel Musculoskeletal: Yes Chronic Back Pain Endocrine: No HEENT: No Cancer: No Psychosocial: Yes Anxiety, Violent Behavior, Depression Integumentary: No Blood Disorders: No Family Medical History No Pertinent Family Hx Physical Exam Vital Signs - First Documented 08/21/21 15:42 B/P (MAP) 135/ Capillary Refill : Height, Weight, BMI Height: '" Weight: lbs. oz. 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, no motor/sensory deficits, alert, normal mood/affect, oriented x 3, other (Depressed and flat affect, repeatedly saying she is suicidal but says she does not have a plan and has not done anything to harm herself thus far, looking around the room frequently, appears paranoid) Skin: normal color, warm/dry Lymphatic: no adenopathy Progress/Results/Core Measures Results/Orders Lab Results Laboratory Tests Test 08/21/21 12:55 08/21/21 13:07 Range/Units White Blood Count 16.6 H 4.3-11.0 10^3/uL Red Blood Count 5.27 H 3.80-5.11 10^6/uL Hemoglobin 13.5 11.5-16.0 g/dL Hematocrit 42 35-52 % Mean Corpuscular Volume 80 80-99 fL Mean Corpuscular Hemoglobin 26 25-34 pg Mean Corpuscular Hemoglobin Concent 32 32-36 g/dL Red Cell Distribution Width 15.0 H 10.0-14.5 % Platelet Count 514 H 130-400 10^3/uL Mean Platelet Volume 11.3 9.0-12.2 fL Immature Granulocyte % (Auto) 1 % Neutrophils (%) (Auto) 78 H 42-75 % Lymphocytes (%) (Auto) 14 12-44 % Monocytes (%) (Auto) 6 0-12 % Eosinophils (%) (Auto) 0 0-10 % Basophils (%) (Auto) 0 0-10 % Neutrophils # (Auto) 13.0 H 1.8-7.8 10^3/uL Lymphocytes # (Auto) 2.4 1.0-4.0 10^3/uL Monocytes # (Auto) 1.0 0.0-1.0 10^3/uL Eosinophils # (Auto) 0.1 0.0-0.3 10^3/uL Basophils # (Auto) 0.1 0.0-0.1 10^3/uL Immature Granulocyte # (Auto) 0.1 0.0-0.1 10^3/uL Neutrophils % (Manual) 69 % Lymphocytes % (Manual) 17 % Monocytes % (Manual) 6 % Eosinophils % (Manual) 0 % Basophils % (Manual) 0 % Band Neutrophils 8 % Platelet Estimate INCREASED Blood Morphology Comment NORMAL Sodium Level 137 135-145 MMOL/L Potassium Level 3.9 3.6-5.0 MMOL/L Chloride Level 97 L 98-107 MMOL/L Carbon Dioxide Level 25 21-32 MMOL/L Anion Gap 15 H 5-14 MMOL/L Blood Urea Nitrogen 8 7-18 MG/DL Creatinine 0.62 0.60-1.30 MG/DL Estimat Glomerular Filtration Rate 121 BUN/Creatinine Ratio 13 Glucose Level 110 H 70-105 MG/DL Calcium Level 9.6 8.5-10.1 MG/DL Corrected Calcium 9.3 8.5-10.1 MG/DL Total Bilirubin 0.4 0.1-1.0 MG/DL Aspartate Amino Transf (AST/SGOT) 15 5-34 U/L Alanine Aminotransferase (ALT/SGPT) 29 0-55 U/L Alkaline Phosphatase 110 40-136 U/L Total Protein 8.3 H 6.4-8.2 GM/DL Albumin 4.4 3.2-4.5 GM/DL Serum Test, Qualitative NEGATIVE NEGATIVE Salicylates Level < 0.3 L 5.0-20.0 MG/DL Acetaminophen Level < 10 L 10-30 UG/ML Serum Alcohol < 10 <10 MG/DL Urine Color YELLOW Urine Clarity CLOUDY Urine pH 6.5 5-9 Urine Specific [place] 1.025 H 1.016-1.022 Urine Protein NEGATIVE NEGATIVE Urine Glucose (UA) NEGATIVE NEGATIVE Urine Ketones 1+ H NEGATIVE Urine Nitrite NEGATIVE NEGATIVE Urine Bilirubin NEGATIVE NEGATIVE Urine Urobilinogen 0.2 < = 1.0 MG/DL Urine Leukocyte Esterase TRACE H NEGATIVE Urine RBC (Auto) NEGATIVE NEGATIVE Urine RBC NONE /HPF Urine WBC 2-5 /HPF Urine Squamous Epithelial Cells 25-50 H /HPF Urine Crystals NONE /LPF Urine Bacteria LARGE H /HPF Urine Casts NONE /LPF Urine Mucus MODERATE H /LPF Urine Culture Indicated NO Urine Opiates Screen NEGATIVE NEGATIVE Urine Oxycodone Screen NEGATIVE NEGATIVE Urine Methadone Screen NEGATIVE NEGATIVE Urine Propoxyphene Screen NEGATIVE NEGATIVE Urine Barbiturates Screen NEGATIVE NEGATIVE Ur Tricyclic Antidepressants Screen NEGATIVE NEGATIVE Urine Phencyclidine Screen NEGATIVE NEGATIVE Urine Amphetamines Screen NEGATIVE NEGATIVE Urine Methamphetamines Screen NEGATIVE NEGATIVE Urine Benzodiazepines Screen POSITIVE H NEGATIVE Urine Cocaine Screen NEGATIVE NEGATIVE Urine Cannabinoids Screen NEGATIVE NEGATIVE My Orders Orders - RADHA EASON MD Ua Culture If Indicated (08/21/21 12:54) Cbc With Automated Diff (08/21/21 12:54) Comprehensive Metabolic Panel (08/21/21 12:54) Alcohol (08/21/21 12:54) Drug Screen Stat (Urine) (08/21/21 12:54) Acetaminophen (08/21/21 12:54) Salicylate (08/21/21 12:54) Ekg Tracing (08/21/21 12:54) Ed Iv/Invasive Line Start (08/21/21 12:54) Monitor-Rhythm Ecg Trace Only (08/21/21 12:54) Bh Status Checks/Observation Q15M (08/21/21 12:54) Ed Iv/Invasive Line Start (08/21/21 12:54) Hcg,Qualitative Serum (08/21/21 12:54) Olanzapine Orally Dissolve Tab (Zyprexa (08/21/21 13:00) Manual Differential (08/21/21 12:55) Medications Given in ED Current Medications Medications Dose Ordered Sig/Debbi Route Start Time Stop Time Status Last Admin Dose Admin Olanzapine 10 mg ONCE ONCE PO 08/21/21 13:00 08/21/21 13:01 DC 08/21/21 13:24 10 MG Vital Signs/I&O 08/21/21 15:42 B/P (MAP) 135/ Progress Progress Note : Progress Note 31-year-old female with above history coming in due to suicidal ideation as well as reportedly attempting to jump out of a vehicle unsuccessfully. ABCs were intact and vitals were stable on presentation. The patient does appear to be attending to external stimuli, and is of course saying she is suicidal. She has no outward signs of trauma and she says she is not in pain. She was recently admitted to [facility] for the psychosis and was discharged recently. Basic labs obtained for psychiatric screening and essentially unremarkable other than a dirty urine sample which I would not treat given she is not having symptoms as well as marijuana in her UDS which is consistent with her prior UDS. The mental health screener was able to evaluate her at 4 PM. The patient was cooperative at that time and said that she does not feel suicidal at this time. She says she was emotional because a lot was going on. They have a plan for follow-up tomorrow as well as again in a couple weeks. The patient is agreeable to this plan. We contacted guillermina who is also agreeable. Before sending the patient out I reevaluated her again and she again tells me that she is not feeling suicidal, has no plans to harm her self, and does have plans to follow- up tomorrow. She was then discharged home in stable condition with strict return precautions Departure Impression Primary Impression: Suicidal ideation Disposition: 01 HOME, SELF-CARE Condition: Stable Departure-Patient Inst. Decision time for Depature: 16:43 Referrals: JOSE RAFAEL VERMA APRN (PCP/Family) Primary Care Physician Patient Instructions: Suicide Prevention Add. Discharge Instructions: Please follow-up with the appointment tomorrow in [place]. If you having any thoughts to hurt yourself please come back to the ER RADHA EASON MD Aug 21, 2021 13:23
[2021-08-21 13:50] LABS: BASOPHILS # (AUTO) 0.1 10^3/uL (0.0-0.1); BASOPHILS % (AUTO) 0 % (0-10); EOSINOPHILS # (AUTO) 0.1 10^3/uL (0.0-0.3); EOSINOPHILS % (AUTO) 0 % (0-10); HEMATOCRIT 42 % (35-52); HEMOGLOBIN 13.5 g/dL (11.5-16.0); LYMPHOCYTES # (AUTO) 2.4 10^3/uL (1.0-4.0); LYMPHOCYTES % (AUTO) 14 % (12-44); MEAN CORPUSCULAR HEMOGLOBIN 26 pg (25-34); MEAN CORPUSCULAR HGB CONC 32 g/dL (32-36); MEAN CORPUSCULAR VOLUME 80 fL (80-99); MEAN PLATELET VOLUME 11.3 fL (9.0-12.2); MONOCYTES % (AUTO) 6 % (0-12); NEUTROPHILS % (AUTO) 78 % (42-75); PLATELET COUNT 514 10^3/uL (130-400); WHITE BLOOD COUNT 16.6 10^3/uL (4.3-11.0)
[2021-08-21 13:54] LABS: BILIRUBIN,URINE NEGATIVE (NEGATIVE); CLARITY,URINE CLOUDY; COLOR,URINE YELLOW; GLUCOSE, URINE (UA) NEGATIVE (NEGATIVE); KETONES,URINE 1+ (NEGATIVE); LEUKOCYTE ESTERASE ,URINE TRACE (NEGATIVE); NITRITE,URINE NEGATIVE (NEGATIVE); PH,URINE 6.5 (5-9); PROTEIN,URINE NEGATIVE (NEGATIVE)
[2021-08-21 14:00] LABS: AMPHETAMINE SCREEN, URINE NEGATIVE (NEGATIVE); BENZODIAZEPINES SCREEN URINE POSITIVE (NEGATIVE); CANNABINOID SCREEN, URINE NEGATIVE (NEGATIVE); COCAINE SCREEN URINE NEGATIVE (NEGATIVE); METHAMPHETAMINE SCREEN URINE S NEGATIVE (NEGATIVE); OPIATE SCREEN URINE NEGATIVE (NEGATIVE)
[2021-08-21 14:01] LABS: BARBITURATE SCREEN URINE NEGATIVE (NEGATIVE); METHADONE STAT NEGATIVE (NEGATIVE); OXYCODONE STAT NEGATIVE (NEGATIVE); PROPOXYPHENE STAT NEGATIVE (NEGATIVE); TRICYCLIC ANTIDEPRESSANTS SCRE NEGATIVE (NEGATIVE)
[2021-08-21 14:03] LABS: ACETAMINOPHEN < 10 UG/ML (10-30); ALANINE AMINOTRANSFERASE 29 U/L (0-55); ALBUMIN 4.4 GM/DL (3.2-4.5); ALKALINE PHOSPHATASE 110 U/L (40-136); BILIRUBIN,TOTAL 0.4 MG/DL (0.1-1.0); BUN/CREATININE RATIO 13; CALCIUM 9.6 MG/DL (8.5-10.1); CARBON DIOXIDE 25 MMOL/L (21-32); CHLORIDE 97 MMOL/L (98-107); CREATININE SERUM 0.62 MG/DL (0.60-1.30); GFR ESTIMATED 121; GLUCOSE 110 MG/DL (70-105); POTASSIUM 3.9 MMOL/L (3.6-5.0); SALICYLATE < 0.3 MG/DL (5.0-20.0); SODIUM 137 MMOL/L (135-145); TOTAL PROTEIN 8.3 GM/DL (6.4-8.2)
[2021-08-21 14:18] LABS: BACTERIA,URINE LARGE /HPF
[2021-08-21 14:19] LABS: SQUAMOUS EPITHELIAL CELL,UR 25-50 /HPF
[2021-08-21 14:27] LABS: BAND NEUTROPHILS 8 %; BASOPHILS % (MANUAL) 0 %; EOSINOPHILS % (MANUAL) 0 %; LYMPHOCYTES % (MANUAL) 17 %; MONOCYTES % (MANUAL) 6 %; NEUTROPHILS % (MANUAL) 69 %; PLATELET ESTIMATE INCREASED; RBC MORPH NORMAL
[2021-08-21 15:42] VITALS: BP_SYST 135
== END 2021-08-21 17:47 | disposition home or self-care (01) ==
LOC: EDUNIT# 12:45 → ER FS 12:46
DX: R45.851 Suicidal ideations (principal); J45.909 Unspecified asthma, uncomplicated; F41.9 Anxiety disorder, unspecified; F32.A Depression, unspecified; Z79.899 Other long term (current) drug therapy; Z32.02 Encounter for pregnancy test, result negative
CPT/HCPCS: 36415; 80053; 80306; 80320; 80329; 81000; 84703; 85007; 85027; 93005

== ENCOUNTER 2021-08-22 18:17 | Emergency (ER) | payer MEDICAID ==
[~2021-08-22] VITALS: Ht 160 cm; Wt 100.0 kg
--- NOTE | 2021-08-22 18:36 | ED Psychosocial ---
General Stated Complaint: MENTAL HEALTH EVAL History of Present Illness Date Seen by Provider: Aug 22, 2021 Time Seen by Provider: 18:31 Initial Comments 31-year-old female sent out by [facility][1] for observation until hospitalization. Patient has been placed on involuntary placement. Patient was seen yesterday for medical clearance and screened. At the time of screening they sent her home with her and were looking for placement. They report that today at her follow-up they just felt that she was not safe at home and that the "wants to go to work" and cannot stay with her. At [facility][1] reports that she is very disorganized, is having lack of comprehension, that she is not communicating clearly. That she attempted to jump out of a moving vehicle. However this was prior to the screening in which they sent her home. They feel that her decision making is impaired and it would not be safe to stay home. Patient is currently on a wait list for admission [facility]. pt states"there is nothing wrong with me" (AUGUSTA CORTEZ DO) Allergies and Home Medications Allergies Coded Allergies: Penicillins (Verified Allergy, Unknown, 05/23/20) Sulfa (Sulfonamide Antibiotics) (Verified Allergy, Unknown, 05/23/20) albuterol (Verified Allergy, Unknown, 05/23/20) codeine (Verified Allergy, Unknown, 05/23/20) sulfamethoxazole (Verified Allergy, Unknown, 05/23/20) trimethoprim (Verified Allergy, Unknown, 05/23/20) Patient Home Medication List Home Medication List Reviewed: Yes (AUGUSTA CORTEZ DO) Buspirone HCl (Buspirone HCl) 10 Mg Tablet, 10 MG PO BID, (Reported) Entered as Reported by: AYANA HILARIO on 08/15/211402 Desvenlafaxine Succinate (Desvenlafaxine Succinate ER) 100 Mg Tab.er.24h, 100 MG PO DAILY, (Reported) Entered as Reported by: AYANA HILARIO on 08/15/211402 Divalproex Sodium (Divalproex Sodium ER) 500 Mg Tab.er.24h, 500 MG PO DAILY, (Reported) Entered as Reported by: AYANA HILARIO on 08/15/21 140 Discontinued Medications Aripiprazole (Aripiprazole) 10 Mg Tablet, 10 MG PO DAILY, (Reported) Entered as Reported by: AYANA HILARIO on 08/15/21 1403 Zolpidem Tartrate (Ambien) 10 Mg Tablet, 10 MG PO HS PRN for INSOMNIA, (Reported) Entered as Reported by: AYANA HILARIO on 08/15/21 1403 Review of Systems Constitutional: no symptoms reported EENTM: no symptoms reported Respiratory: no symptoms reported Cardiovascular: no symptoms reported Gastrointestinal: no symptoms reported Genitourinary: no symptoms reported Musculoskeletal: no symptoms reported Skin: no symptoms reported Psychiatric/Neurological: See HPI (AUGUSTA CORTEZ DO) Past Xdntdvc-Nldmdc-Fnnove Hx Immunizations Up To Date First/Initial COVID19 Vaccinat: 11/18/20 Second COVID19 Vaccination Jameson: 12/16/20 (AUGUSTA CORTEZ DO) Seasonal Allergies Seasonal Allergies: Yes (AUGUSTA CORTEZ DO) Past Medical History Surgeries: No Respiratory: Yes Asthma Cardiac: No Neurological: No Genitourinary: No Gastrointestinal: No (reports IBS) Irritable Bowel Musculoskeletal: Yes Chronic Back Pain Endocrine: No HEENT: No Cancer: No Psychosocial: Yes Anxiety, Violent Behavior, Depression Integumentary: No Blood Disorders: No (AUGUSTA CORTEZ DO) Family Medical History No Pertinent Family Hx (AUGUSTA CORTEZ DO) Physical Exam Vital Signs - First Documented 08/22/21 18:35 Temp 36.4 Pulse 110 Resp 14 B/P (MAP) 146/95 (112) Pulse Ox 98 O2 Delivery Room Air (ENYARTOMID MD) Capillary Refill : (AUGUSTA CORTEZ DO) Height, Weight, BMI Height: '" Weight: lbs. oz. kg; 36.57 BMI Method: General Appearance: WD/WN, no apparent distress Respiratory: lungs clear, normal breath sounds Cardiovascular: normal peripheral pulses, regular rate, rhythm Gastrointestinal: non tender, soft Neurologic/Psychiatric: alert Behavior/Eye Contact: cooperative Skin: normal color, warm/dry (AUGUSTA CORTEZ DO) Progress/Results/Core Measures Results/Orders Lab Results Laboratory Tests Test 08/22/21 18:37 08/22/21 18:43 Range/Units Urine Color RED H Urine Clarity TURBID Urine pH 5.5 5-9 Urine Specific [place] >=1.030 1.016-1.022 Urine Protein 2+ H NEGATIVE Urine Glucose (UA) NEGATIVE NEGATIVE Urine Ketones NEGATIVE NEGATIVE Urine Nitrite POSITIVE H NEGATIVE Urine Bilirubin NEGATIVE NEGATIVE Urine Urobilinogen 0.2 < = 1.0 MG/DL Urine Leukocyte Esterase TRACE H NEGATIVE Urine RBC (Auto) 3+ H NEGATIVE Urine RBC 10-25 H /HPF Urine WBC 10-25 H /HPF Urine Squamous Epithelial Cells 10-25 H /HPF Urine Crystals PRESENT H /LPF Urine Amorphous Sediment FEW [place] URATES H /LPF Urine Bacteria LARGE H /HPF Urine Casts NONE /LPF Urine Mucus SMALL H /LPF Urine Culture Indicated YES Urine Opiates Screen NEGATIVE NEGATIVE Urine Oxycodone Screen NEGATIVE NEGATIVE Urine Methadone Screen NEGATIVE NEGATIVE Urine Propoxyphene Screen NEGATIVE NEGATIVE Urine Barbiturates Screen NEGATIVE NEGATIVE Ur Tricyclic Antidepressants Screen NEGATIVE NEGATIVE Urine Phencyclidine Screen NEGATIVE NEGATIVE Urine Amphetamines Screen NEGATIVE NEGATIVE Urine Methamphetamines Screen NEGATIVE NEGATIVE Urine Benzodiazepines Screen POSITIVE H NEGATIVE Urine Cocaine Screen NEGATIVE NEGATIVE Urine Cannabinoids Screen NEGATIVE NEGATIVE SARS-CoV-2 RNA (RT-PCR) Not Detected Not Detecte (OMID LYNN MD) Micro Results Microbiology 08/22/21 Urine Culture - Final, Complete Gram Pos Mixed Bacterial Adore (OMID LYNN MD) My Orders Orders - OMID LYNN MD Loperamide Tablet (Imodium Tablet) (08/23/21 08:37) (OMID LYNN MD) Vital Signs/I&O 08/23/21 11:41 Pulse 91 Resp 16 B/P (MAP) 128/78 Pulse Ox 97 O2 Delivery Room Air (OMID LYNN MD) Progress Progress Note #1: Time: 07:00 Progress Note I assumed care of patient from Dr. Cortez at shift change 7 am on Saturday. She was waiting on involuntary placement. She had been medically screened and cleared for psychiatric admit and had recently been in the hospital for similar symptoms and complaints. Within 24 hours of discharge she returned to the ED, was seen, medically screened and cleared and then had a psychiatric screening done. She was discharged with a safety plan but then returned SaturdayAugust 22 for the same complaint after being seen in [facility] clinic and deemed necessary to place her on involuntary hold. She was sent to the ED as involuntary hold until placement could be found for her. She continues to say she does not know what is going on and ask where her son is at. She says she wants to go home. Progress Note #2: Time: 11:25 Progress Note Pt has walked to the bathroom multiple times and had diarrhea as well as she has needed to change her sanitary pad due to menses. She did request something for her diarrhea and some cramping so a dose of Imodium was ordered 4 mg po x 1. 1125 [facility] accepted pt for admit with Dr. Hancock as the attending. They need nurse to nurse report and will have law enforcement transport her since she is involuntary. (OMID LYNN MD) Departure Impression Primary Impression: Altered behavior Additional Impression: Acute psychosis Disposition: 65 XFER TO PSYCH HOSP/UNIT Condition: Stable Transfer Transfer Reason: Exceeds level of care (Psychiatric Involuntary ) Time Spoke to Accepting Phy: 11:25 Transfer Progress Notes Georgina from [facility] called and stated Dr. Hancock had accepted pt to [facility] for admit. Transfer Facility: [facility] Method of Transfer: Law Enforcement (OMID LYNN MD) Departure-Patient Inst. Referrals: CHIRAG CAMPBELL APRN (PCP) Primary Care Physician AFIA LOPEZ DO (Family) Primary Care Physician AUGUSTA CORTEZ DO Aug 22, 2021 18:36 OMID LYNN MD Aug 23, 2021 11:44
[2021-08-22 18:48] LABS: BILIRUBIN,URINE NEGATIVE (NEGATIVE); CLARITY,URINE TURBID; COLOR,URINE RED; GLUCOSE, URINE (UA) NEGATIVE (NEGATIVE); KETONES,URINE NEGATIVE (NEGATIVE); LEUKOCYTE ESTERASE ,URINE TRACE (NEGATIVE); NITRITE,URINE POSITIVE (NEGATIVE); PH,URINE 5.5 (5-9); PROTEIN,URINE 2+ (NEGATIVE)
[2021-08-22 18:55] LABS: BACTERIA,URINE LARGE /HPF
[2021-08-22 18:56] LABS: AMORPHOUS SEDIMENT,UR FEW AMOR URATES /LPF
[2021-08-22 18:59] LABS: AMPHETAMINE SCREEN, URINE NEGATIVE (NEGATIVE); BARBITURATE SCREEN URINE NEGATIVE (NEGATIVE); BENZODIAZEPINES SCREEN URINE POSITIVE (NEGATIVE); CANNABINOID SCREEN, URINE NEGATIVE (NEGATIVE); COCAINE SCREEN URINE NEGATIVE (NEGATIVE); METHADONE STAT NEGATIVE (NEGATIVE); METHAMPHETAMINE SCREEN URINE S NEGATIVE (NEGATIVE); OPIATE SCREEN URINE NEGATIVE (NEGATIVE); OXYCODONE STAT NEGATIVE (NEGATIVE); PROPOXYPHENE STAT NEGATIVE (NEGATIVE); TRICYCLIC ANTIDEPRESSANTS SCRE NEGATIVE (NEGATIVE)
[2021-08-22] MEDS ORDERED: diphenhydrAMINE 25 MG TAB (BENADRYL) PO ONE (19:15)
[2021-08-22] MEDS ORDERED: OLANZapine 5 MG ODT (ZyPREXA ZYDIS) PO ONE (21:45)
[2021-08-23] MEDS ORDERED: LOPERAMIDE 2 MG (IMODIUM) TABLET PO STA (08:37)
[2021-08-23 11:41] VITALS: BP 128/78
== END 2021-08-23 11:41 ==
LOC: EDUNIT# 18:17 → ER FS 18:19
DX: R41.82 Altered mental status, unspecified (principal); F41.9 Anxiety disorder, unspecified; F32.9 Major depressive disorder, single episode, unspecified; J45.909 Unspecified asthma, uncomplicated; Z20.822 Contact with and (suspected) exposure to COVID-19
CPT/HCPCS: 80306; 81000; 87088; 87636; 99284